=== PATIENT | male | born 1950 | race Hispanic/Latino ===

== ENCOUNTER 2017-01-06 13:24 | Emergency (ER) | payer OTHER ==
[2017-01-06 13:47] VITALS: BMI 19.6
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
[2017-01-06] MEDS ORDERED: Albuterol-Ipratrop 3 mg / 0.5 (3 ml) UD IH STA (13:49)
[2017-01-06 14:20] LABS: ADD MANUAL DIFF? NO
[2017-01-06 14:24] VITALS: RESP 18
[2017-01-06 14:25] LABS: BASO # 0.01 K/mm3 (0.0-2.0); BASO % 0.1 % (0.0-3.0); EOS # 0.6 (0.0-0.7); EOS % 5.7 % (1.5-5.0); GRAN # 7.89 (1.4-6.5); GRAN % 72.7 % (50.0-68.0); HEMATOCRIT 38.8 % (42.0-52.0); LYMPH # 1.4 (1.2-3.4); LYMPH % 13.3 % (22.0-35.0); MEAN CELL VOLUME 104.3 fL (80.0-105.0); MEAN CORPUSCULAR HEMOGLOBIN 33.9 pg (25.0-35.0); MEAN CORPUSCULAR HGB CONC 32.5 g/dl (31.0-37.0); MEAN PLATELET VOLUME 9.8 fl (7.0-11.0); MONO # 0.9 (0.1-0.6); MONO % 8.2 % (1.0-6.0); PLATELET COUNT 269 10^3/uL (120.0-450.0); WHITE BLOOD COUNT 10.9 10^3/ul (4.5-11.0)
--- NOTE | 2017-01-06 14:28 | RAD ---
HISTORY: sob COMPARISON: No prior. FINDINGS: LUNGS: There is pulmonary hyperinflation and peribronchial thickening with chronic changes in both lungs. There is no focal consolidation. PLEURA: No significant pleural effusion identified, no pneumothorax apparent. CARDIOVASCULAR: Normal. OSSEOUS STRUCTURES: No significant abnormalities. VISUALIZED UPPER ABDOMEN: Normal. OTHER FINDINGS: None. IMPRESSION: COPD. No active disease.
[2017-01-06 14:47] LABS: ALB/GLOB RATIO 0.9 (1.1-1.8); ALKALINE PHOSPHATASE 61 U/L (38-133); ALT/SGPT 20 U/L (7-56); AST/SGOT 20 U/L (15-59); BILIRUBIN,TOTAL 0.6 mg/dL (0.2-1.3); BLOOD UREA NITROGEN 6 mg/dL (7-21); CARBON DIOXIDE 37 mmol/L (21-33); CHLORIDE 93 mmol/L (98-107); GFR AFRICAN-AMERICAN > 60; GLUCOSE,RANDOM 184 mg/dL (70-110); POTASSIUM 4.3 mmol/L (3.6-5.0); SODIUM 136 mmol/L (132-148); TOTAL PROTEIN 6.4 g/dL (5.8-8.3)
[2017-01-06 14:59] LABS: TROPONIN I < 0.01 ng/mL
[2017-01-07 07:53] VITALS: BP 122/75; PULSE 91; TEMP 98; O2SAT 95
--- NOTE | 2017-01-07 09:56 | CARD ---
APPROVED REPORT EKG Measurement Heart [id number] <Conclusion> Sinus tachycardia LVH by voltage No change
== END 2017-01-07 07:55 | disposition home or self-care (01) ==
LOC: ED 13:24
DX: J44.1 Chronic obstructive pulmonary disease with (acute) exacerbation (principal); F41.9 Anxiety disorder, unspecified; I10 Essential (primary) hypertension
CPT/HCPCS: 71010; 80053; 82550; 83615; 84484; 85025; 93005; 96374; 99284; J2930

== ENCOUNTER 2017-01-07 08:10 | Emergency (ER) | payer OTHER ==
[2017-01-07 08:10] VITALS: BMI 19.6
[2017-01-07 08:20] VITALS: TEMP 97.4
[2017-01-07] MEDS ORDERED: Albuterol-Ipratrop 3 mg / 0.5 (3 ml) UD IH STA (08:20)
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
[2017-01-07 10:04] VITALS: RESP 18; O2SAT 96
[2017-01-07 11:11] VITALS: BP 137/83; PULSE 97
== END 2017-01-07 13:00 | disposition home or self-care (01) ==
LOC: ED 08:10
DX: J44.9 Chronic obstructive pulmonary disease, unspecified (principal); F41.9 Anxiety disorder, unspecified; I10 Essential (primary) hypertension

== ENCOUNTER 2017-02-17 18:51 | Inpatient (IN) | payer MEDICARE, OTHER ==
[2017-02-17 18:51] VITALS: BMI 19.6
[2017-02-17] MEDS ORDERED: Albuterol-Ipratrop 3 mg / 0.5 (3 ml) UD IH STA ×2 (19:18→22:35)
[2017-02-17] MEDS ORDERED: Albuterol-Ipratrop 3 mg / 0.5 (3 ml) UD ONE ×2 (19:23→22:24)
[2017-02-17 19:31] LABS: ADD MANUAL DIFF? NO
[2017-02-17 19:54] LABS: BASO # 0.03 K/mm3 (0.0-2.0); BASO % 0.2 % (0.0-3.0); EOS # 0.6 (0.0-0.7); EOS % 4.9 % (1.5-5.0); GRAN # 9.43 (1.4-6.5); GRAN % 77.4 % (50.0-68.0); HEMATOCRIT 33.3 % (42.0-52.0); LYMPH # 1.1 (1.2-3.4); LYMPH % 9.1 % (22.0-35.0); MEAN CELL VOLUME 97.1 fL (80.0-105.0); MEAN CORPUSCULAR HEMOGLOBIN 31.2 pg (25.0-35.0); MEAN CORPUSCULAR HGB CONC 32.1 g/dl (31.0-37.0); MEAN PLATELET VOLUME 9.3 fl (7.0-11.0); MONO % 8.4 % (1.0-6.0); PLATELET COUNT 264 10^3/uL (120.0-450.0); WHITE BLOOD COUNT 12.2 10^3/ul (4.5-11.0)
[2017-02-17 20:03] LABS: INR 0.94 (0.93-1.08); PARTIAL THROMBOPLASTIN TIME 27.1 Seconds (23.7-30.8)
[2017-02-17 20:19] LABS: ALB/GLOB RATIO 1.1 (1.1-1.8); ALKALINE PHOSPHATASE 71 U/L (38-133); ALT/SGPT 28 U/L (7-56); AST/SGOT 31 U/L (15-59); BILIRUBIN,TOTAL 0.5 mg/dL (0.2-1.3); BLOOD UREA NITROGEN 9 mg/dL (7-21); CALCIUM 9.4 mg/dL (8.4-10.5); CARBON DIOXIDE 37 mmol/L (21-33); CHLORIDE 87 mmol/L (98-107); GFR AFRICAN-AMERICAN > 60; GLUCOSE,RANDOM 109 mg/dL (70-110); POTASSIUM 3.8 mmol/L (3.6-5.0); SODIUM 131 mmol/L (132-148); TOTAL PROTEIN 6.7 g/dL (5.8-8.3)
[2017-02-17 20:29] LABS: TROPONIN I < 0.01 ng/mL
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
[2017-02-17] MEDS ORDERED: Sodium Chloride 0.9% 500 ML IV STA (21:22)
[2017-02-17] MEDS ORDERED: MethylPREDNISolone 40 mg Vial IVP PRN (22:24)
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
[2017-02-18 00:04] LABS: PHOSPHOROUS 3.7 mg/dL (2.5-4.5)
[2017-02-18 07:46] LABS: ADD MANUAL DIFF? NO
[2017-02-18] MEDS: Levalbuterol 0.63 MG/3 ML Inhal Soln UD IH SCH ×3 (07:46→20:35)
[2017-02-18 07:53] LABS: BASO # 0.01 K/mm3 (0.0-2.0); BASO % 0.2 % (0.0-3.0); GRAN # 3.98 (1.4-6.5); GRAN % 92.2 % (50.0-68.0); HEMATOCRIT 40.7 % (42.0-52.0); LYMPH # 0.3 (1.2-3.4); LYMPH % 6.7 % (22.0-35.0); MEAN CELL VOLUME 96.9 fL (80.0-105.0); MEAN CORPUSCULAR HGB CONC 31.9 g/dl (31.0-37.0); MEAN PLATELET VOLUME 9.5 fl (7.0-11.0); MONO % 0.9 % (1.0-6.0); PLATELET COUNT 308 10^3/uL (120.0-450.0); RED CELL DISTRIBUTION WIDTH 15.1 % (11.5-14.5); WHITE BLOOD COUNT 4.3 10^3/ul (4.5-11.0)
[2017-02-18 08:04] LABS: ALB/GLOB RATIO 1.1 (1.1-1.8); ALKALINE PHOSPHATASE 75 U/L (38-133); ALT/SGPT 24 U/L (7-56); AST/SGOT 29 U/L (15-59); BILIRUBIN,TOTAL 0.6 mg/dL (0.2-1.3); BLOOD UREA NITROGEN 9 mg/dL (7-21); CARBON DIOXIDE 34 mmol/L (21-33); CHLORIDE 95 mmol/L (98-107); GFR AFRICAN-AMERICAN > 60; GLUCOSE,RANDOM 148 mg/dL (70-110); POTASSIUM 4.3 mmol/L (3.6-5.0); SODIUM 142 mmol/L (132-148)
[2017-02-18 08:14] LABS: TROPONIN I 0.02 ng/mL
[2017-02-18] MEDS: Azithromycin 500MG/NS 250ml 500 MG/250 ML BAG IVPB SCH ×2 (09:19→23:54)
[2017-02-18] MEDS: ACLIDINIUM BROMIDE 400 MCG IH SCH ×2 (10:06→22:00)
[2017-02-18] MEDS: Enoxaparin 40 mg Syringe SC SCH (10:08)
[2017-02-18] MEDS: cefTRIAXone 1 gm 1 GM/100 ML BAG IVPB SCH (10:09)
[2017-02-18] MEDS: OLANZapine 5 mg Disintegrating Tab PO SCH ×2 (10:11→22:19)
[2017-02-18] MEDS: MethylPREDNISolone 40 mg Vial IVP SCH ×2 (10:11→22:17)
--- NOTE | 2017-02-18 11:38 | CP.PCM.PN ---
<Mdaeleine,Makenna - Last Filed: 02/18/17 11:35> Subjective - Date & Time of Evaluation Date of Evaluation: 02/18/17 Time of Evaluation: 11:36 - Subjective Subjective: HOSPITALIST PROGRESS NOTE Pt seen and examined at bedside. patient is agitated and confused, not oriented. Patient was placed on elisa overnight due to agitation. Objective - Vital Signs/Intake and Output Vital Signs (last 24 hours): Temp Pulse Resp BP Pulse Ox 98.3 F 108 H 20 151/87 H 93 L 02/18/17 05:49 02/18/17 07:48 02/18/17 05:49 02/18/17 05:49 02/18/17 00:08 Intake and Output: 02/18/17 02/18/17 06:59 18:59 Intake Total 120 Output Total 975 Balance -855 - Medications Medications: Current Medications Aspirin (Ecotrin) 81 mg PO DAILY [facility] Last Admin: 02/18/17 10:08 Dose: 81 mg Benztropine Mesylate (Cogentin) 0.5 mg PO BID [facility] Last Admin: 02/18/17 10:07 Dose: 0.5 mg Cyanocobalamin (Vitamin B12 1000 Mcg Tab) 1,000 mcg PO DAILY [facility] Last Admin: 02/18/17 10:11 Dose: 1,000 mcg Docusate Sodium (Colace) 100 mg PO DAILY [facility] Last Admin: 02/18/17 10:07 Dose: 100 mg Enoxaparin Sodium (Lovenox) 40 mg SC DAILY [facility] PRN Reason: Protocol Last Admin: 02/18/17 10:08 Dose: 40 mg Famotidine (Pepcid) 20 mg PO BID [facility] Last Admin: 02/18/17 10:09 Dose: 20 mg Guaifenesin/Dextromethorphan (Robitussin Dm) 5 ml PO Q4H PRN PRN Reason: Cough Ceftriaxone Sodium (Rocephin 1 Gram Ivpb) 1 gm in 100 mls @ 100 mls/hr IVPB DAILY [facility] PRN Reason: Protocol Last Admin: 02/18/17 10:09 Dose: 100 mls/hr Azithromycin (Zithromax 500mg In Ns) 500 mg in 250 mls @ 167 mls/hr IVPB Q24H [facility] Last Admin: 02/18/17 09:19 Dose: Not Given Levalbuterol HCl (Xopenex) 0.63 mg IH Q6H [facility] Last Admin: 02/18/17 07:46 Dose: 0.63 mg Lorazepam (Ativan) 0.5 mg PO TID PRN; Protocol PRN Reason: Anxiety Last Admin: 02/18/17 00:27 Dose: 0.5 mg Lorazepam (Ativan) 1 mg IVP Q2H PRN; Protocol PRN Reason: Agitation Last Admin: 02/18/17 10:06 Dose: 1 mg Methylprednisolone (Solu-Medrol) 20 mg IVP Q12 [facility] Last Admin: 02/18/17 10:11 Dose: 20 mg Metoprolol Tartrate (Lopressor) 25 mg PO BID [facility] Last Admin: 02/18/17 10:08 Dose: 25 mg Mirtazapine (Remeron) 15 mg PO HS PRN PRN Reason: Insomnia Last Admin: 02/18/17 00:28 Dose: 15 mg Nicotine (Nicoderm Cq) 1 patch TD DAILY [facility] Last Admin: 02/18/17 10:08 Dose: 1 patch Non-Formulary Medication (Aclidinium [place] [Tudorza Pressair]) 400 mcg IH Q12 [facility] Last Admin: 02/18/17 10:06 Dose: Not Given Olanzapine (Zyprexa Zydis) 5 mg PO AMHS [facility] PRN Reason: Protocol Last Admin: 02/18/17 10:11 Dose: 5 mg Valproate Sodium (Depakene) 500 mg PO AMHS [facility] Last Admin: 02/18/17 10:09 Dose: 500 mg - Labs Labs: 02/18/17 07:10 02/18/17 07:10 PT 10.1 Seconds (9.9-11.8) 02/17/17 19:18 INR 0.94 (0.93-1.08) 02/17/17 19:18 APTT 27.1 Seconds (23.7-30.8) 02/17/17 19:18 - Constitutional Appears: Agitated - Head Exam Head Exam: ATRAUMATIC - Respiratory Exam Respiratory Exam: absent: Accessory Muscle Use, Rales, Rhonchi, Wheezes, Respiratory Distress, NORMAL BREATHING PATTERN (shallow breaths ) - Cardiovascular Exam Cardiovascular Exam: REGULAR RHYTHM, +S1, +S2 - GI/Abdominal Exam GI & Abdominal Exam: Soft, Normal Bowel Sounds. absent: Distended, Firm, Guarding, Rigid, Tenderness - Extremities Exam Extremities Exam: absent: Pedal Edema, Tenderness - Neurological Exam Neurological Exam: Awake. absent: Alert, Oriented x3 - Skin Skin Exam: Dry, Intact, Normal Color, Warm Assessment and Plan - Assessment and Plan (Free Text) Assessment: 66M w/PMH sig for COPD, anxiety and multiple co-morbidites admitted for SOB due to panic attack vs. COPD exacerbation. Will be admitted and monitored on remote tele. Pt stable. Plan: COPD exacerbation leukocytosis resolved Afebrile Solumedrol 20mg Q12H [facility] wheezing xopenex Started Azithromycin 330mg Q24H Started Rocephin 1gm IVPB QD Robitussin DM Q4H PRN cough Cont home meds: Tudorza Pressair Target SaO2> 94% BiPAP prn Hyponatremia resolved Fluid restriction Monitor Hx CHF/CAD s/p cardiac cath HR 124 Given Duonebs x 2 in ED Troponin neg x 1 BNP 72.6 F/U 3rd trop Cont home meds: ASA 81mg QD, Lopressor 25mg PO BID Psych history Cont home meds: Cogentin 0.5mg PO BID, Cyanocobalamin 1,000mcg PO QD, Ativan 0.5mg PO TID PRN, Remeron 15mg PO HS PRN, Olanzapine 5mg PO AMHS, Psych consulted- Dr. Andersen Hx seizure d/o Cont home med: Valproic acid 500mg PO [facility] Tobacco abuse Nicotine patch TD QD Sacral skin break down Wound assessment/care as per nursing Monitor Multivitamin, zinc and vit c GI/DVT ppx SCDs Lovenox Pepcid Dispo Admit to remote tele Fall precautions HHD VS Q8H Cont home med: Colace 100mg PO QD, DW attending <Deon Avalos - Last Filed: 02/18/17 12:20> Objective - Vital Signs/Intake and Output Vital Signs (last 24 hours): Temp Pulse Resp BP Pulse Ox 98.3 F 108 H 20 151/87 H 93 L 02/18/17 05:49 02/18/17 07:48 02/18/17 05:49 02/18/17 05:49 02/18/17 00:08 Intake and Output: 02/18/17 02/18/17 06:59 18:59 Intake Total 120 Output Total 975 Balance -855 - Medications Medications: Current Medications Ascorbic Acid (Vitamin C 500 Mg Tab) 500 mg PO DAILY [facility] Aspirin (Ecotrin) 81 mg PO DAILY [facility] Last Admin: 02/18/17 10:08 Dose: 81 mg Benztropine Mesylate (Cogentin) 0.5 mg PO BID [facility] Last Admin: 02/18/17 10:07 Dose: 0.5 mg Cyanocobalamin (Vitamin B12 1000 Mcg Tab) 1,000 mcg PO DAILY [facility] Last Admin: 02/18/17 10:11 Dose: 1,000 mcg Docusate Sodium (Colace) 100 mg PO DAILY [facility] Last Admin: 02/18/17 10:07 Dose: 100 mg Enoxaparin Sodium (Lovenox) 40 mg SC DAILY [facility] PRN Reason: Protocol Last Admin: 02/18/17 10:08 Dose: 40 mg Famotidine (Pepcid) 20 mg PO BID [facility] Last Admin: 02/18/17 10:09 Dose: 20 mg Guaifenesin/Dextromethorphan (Robitussin Dm) 5 ml PO Q4H PRN PRN Reason: Cough Ceftriaxone Sodium (Rocephin 1 Gram Ivpb) 1 gm in 100 mls @ 100 mls/hr IVPB DAILY [facility] PRN Reason: Protocol Last Admin: 02/18/17 10:09 Dose: 100 mls/hr Azithromycin (Zithromax 500mg In Ns) 500 mg in 250 mls @ 167 mls/hr IVPB Q24H [facility] Last Admin: 02/18/17 09:19 Dose: Not Given Levalbuterol HCl (Xopenex) 0.63 mg IH Q6H [facility] Last Admin: 02/18/17 07:46 Dose: 0.63 mg Lorazepam (Ativan) 0.5 mg PO TID PRN; Protocol PRN Reason: Anxiety Last Admin: 02/18/17 00:27 Dose: 0.5 mg Lorazepam (Ativan) 1 mg IVP Q2H PRN; Protocol PRN Reason: Agitation Last Admin: 02/18/17 10:06 Dose: 1 mg Methylprednisolone (Solu-Medrol) 20 mg IVP Q12 [facility] Last Admin: 02/18/17 10:11 Dose: 20 mg Metoprolol Tartrate (Lopressor) 25 mg PO BID [facility] Last Admin: 02/18/17 10:08 Dose: 25 mg Mirtazapine (Remeron) 15 mg PO HS PRN PRN Reason: Insomnia Last Admin: 02/18/17 00:28 Dose: 15 mg Multivitamins/Minerals (Therapeutic-M Tab) 1 tab PO DAILY [facility] Nicotine (Nicoderm Cq) 1 patch TD DAILY [facility] Last Admin: 02/18/17 10:08 Dose: 1 patch Non-Formulary Medication (Aclidinium [place] [Tudorza Pressair]) 400 mcg IH Q12 [facility] Last Admin: 02/18/17 10:06 Dose: Not Given Olanzapine (Zyprexa Zydis) 5 mg PO AMHS [facility] PRN Reason: Protocol Last Admin: 02/18/17 10:11 Dose: 5 mg Valproate Sodium (Depakene) 500 mg PO AMHS [facility] Last Admin: 02/18/17 10:09 Dose: 500 mg Zinc Sulfate (Zinc Sulfate 220 Mg Cap) 220 mg PO DAILY [facility] - Labs Labs: 02/18/17 07:10 02/18/17 07:10 PT 10.1 Seconds (9.9-11.8) 02/17/17 19:18 INR 0.94 (0.93-1.08) 02/17/17 19:18 APTT 27.1 Seconds (23.7-30.8) 02/17/17 19:18 Attending/Attestation - Attestation I have personally seen and examined this patient.: Yes I have fully participated in the care of the patient.: Yes I have reviewed all pertinent clinical information, including history, physical exam and plan: Yes Notes (Text): 02/18/17 12:14 66 year old male with past medical history of COPD, anxiety, depression and PTSD who presented with shortness of breath secondary to panic attack +/- COPD exacerbation. Overnight he was confused and agitated requiring restraints. This morning as well he is agitated with mild confusion but can be re-oriented. He is on iv steroids, xopenex and antibiotics. He is on ativan prn. He was seen by psychiatrist earlier this morning. Will follow up with recommendations. Deon Avalos MD Hospitalist.
[2017-02-18] MEDS: Multivitamin With Minerals Tab PO SCH (12:31)
--- NOTE | 2017-02-18 13:01 | CON ---
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 Of note, patient did try to leave the Emergency Room but was not found to have [place] due to his confusion and paranoia. Psychiatry was called for a followup visit to patient's diso rientation as well as prior psychiatric history. I reviewed the patient's records and recent notes a nd met with patient at bedside. The patient is notably irritable, loud, angry and paranoid. However , patient is willing to superficially respond to questioning by this provider, although it does not a ppear I can establish a meaningful dialogue with him due to his mental status. The patient is not aw are of current circumstances of his admission, he believes that he on [address] in [place]. He is aware that it is January, however believes it is the beginning of January, and that it is 2016. The p atient is irritable as noted and indicates that he has pain "all over" and because of this he is depr essed. He denies any hallucinations. Denies feeling hopeless or suicidal. Denies any thoughts to h arm others. The patient has been difficult with staff members, restless and argumentative at times. He tells me that he liked the recent medications he has taken in the past; however, cannot recall an y of them except for Klonopin. He also wants his pain to be addressed. His insight and judgment are considered to be impaired. Impulse control is considered to be fair. PSYCHIATRIC HISTORY: As noted above the patient has a prior psychiatric history of multiple hospital izations, most recently 10/04 to 10/15/2016 at [facility]. The patient when he was disch arged in 09/2016, he was discharged on Depakote ER 1500 at bedtime, Ativan 0.5 t.i.d. as psychiatric medications. The patient does have a suicide attempt by overdose approximately 30 years ago. The jessa cisneros does not currently follow up with any psychiatric outpatient provider. MEDICATIONS: ____ also include ____ . ALLERGIES: THE PATIENT REPORTEDLY HAD A BAD REACTION TO ABILIFY IN THE PAST. SOCIAL HISTORY: The patient was born and raised in [place]. He is single and he has 3 children, 2 o f which are . The patient resides with his father. He denies any issues with drugs or al cohol; however, this contradicts prior records which indicate he has a history of alcohol abuse. LABORATORY DATA AND VITAL SIGNS: Both reviewed by this provider. RELEVANT PSYCHIATRIC MEDICATIONS: Include Cogentin 0.5 mg p.o. b.i.d., Ativan 0.5 mg p.o. t.i.d. p.r .n., as well as Ativan 1 mg IV push q. 2 hours p.r.n., Remeron 15 mg p.o. at bedtime p.r.n., Zyprexa Zydis 5 mg a.m. and at bedtime as well as depakene 500 mg p.o. a.m. and at bedtime scheduled. IMPRESSION: Bipolar mixed disorder moderate to severe by history, anxiety disorder by history, rule out alcohol abuse, rule out drug abuse, rule out substance-induced mood disorder and substance-induce d psychotic disorder and rule out the contribution of delirium to patient's presentation. PLAN: 1. Will continue with Ativan 0.5 mg p.o. t.i.d., however will continue at a standing dose as the pat ient reported improvement with benzodiazepines of the past. 2. We will also continue with depakene 500 mg p.o. a.m. and at bedtime, as patient requires mood sta bilizer due to his obvious mobility on the unit. 3. Will continue Zyprexa Zydis 5 mg a.m. and at bedtime as well due to the patient's disorganization . 4. Remeron should not be taken as p.r.n. medication for insomnia, it can help with insomnia, but it should also be taken daily to help with depression which patient currently reports having issues with at this time. We will continue this; however, change it to a standing dose. 5. I would also like to order a toxicology to determine if patient is under the influence of any jessica gs as well, although BAL was less than 10. 6. Lastly, psychiatry will continue to follow with patient and try to elicit cooperation for possibl e transfer to psychiatric unit for further stabilization if necessary once his mentation improved. W e will continue to follow up daily and to determinate feasibility of this transfer and tolerance to h is current medications and progression of his behavioral issues. Mari Stoll MD cc: [id number] TT: 02/18/2017 13:00:35 Confirmation # [id number] Dictation # [id number] jn
--- NOTE | 2017-02-18 13:36 | CARD ---
APPROVED REPORT EKG Measurement Heart [id number] <Conclusion> Sinus tachycardia Moderate voltage criteria for LVH, may be normal variant Borderline ECG
[2017-02-18] MEDS ORDERED: Levalbuterol 0.63 MG/3 ML Inhal Soln UD IH SCH (14:00)
--- NOTE | 2017-02-18 15:51 | RAD ---
HISTORY: cough COMPARISON: Comparison chest dated 12/15/2016. Comparison made with CT scan chest 12/15/2016. FINDINGS: LUNGS: Moderate emphysematous changes with upper lobe predominance associated with biapical pleural thickening and scarring less well seen compared to prior high-resolution CT scan. . PLEURA: No significant pleural effusion identified, no pneumothorax apparent. CARDIOVASCULAR: Normal. OSSEOUS STRUCTURES: No significant abnormalities. VISUALIZED UPPER ABDOMEN: Normal. OTHER FINDINGS: None. IMPRESSION: Emphysematous changes and biapical pleural scarring/parenchymal thickening.
[2017-02-18] MEDS: guaiFENesin DM 100 mg-10 mg/5 ml UD PO PRN (22:28)
[2017-02-19] MEDS: Levalbuterol 0.63 MG/3 ML Inhal Soln UD IH SCH ×4 (02:50→19:58)
[2017-02-19 05:26] LABS: URINE BILIRUBIN NEGATIVE (NEGATIVE); URINE BLOOD NEGATIVE (NEGATIVE); URINE GLUCOSE (UA) NEGATIVE (NEGATIVE); URINE KETONE NEGATIVE (NEGATIVE); URINE LEUKOCYTE ESTERASE NEGATIVE Leu/uL (NEGATIVE); URINE PROTEIN NEGATIVE mg/dL (<30 mg/dL); URINE UROBILINOGEN 0.2 E.U./dL (<1 E.U./dL)
[2017-02-19 05:40] LABS: URINE APPEARANCE CLEAR (CLEAR); URINE COLOR YELLOW (YELLOW)
[2017-02-19 07:43] LABS: ADD MANUAL DIFF? NO
[2017-02-19 07:51] LABS: GRAN % 82.5 % (50.0-68.0); HEMATOCRIT 35.4 % (42.0-52.0); LYMPH # 0.6 (1.2-3.4); LYMPH % 10.2 % (22.0-35.0); MEAN CELL VOLUME 97.8 fL (80.0-105.0); MEAN CORPUSCULAR HEMOGLOBIN 30.7 pg (25.0-35.0); MEAN CORPUSCULAR HGB CONC 31.4 g/dl (31.0-37.0); MEAN PLATELET VOLUME 9.3 fl (7.0-11.0); MONO # 0.5 (0.1-0.6); MONO % 7.3 % (1.0-6.0); PLATELET COUNT 275 10^3/uL (120.0-450.0); RED CELL DISTRIBUTION WIDTH 15.2 % (11.5-14.5); WHITE BLOOD COUNT 6.3 10^3/ul (4.5-11.0)
[2017-02-19 08:05] LABS: ALB/GLOB RATIO 1.1 (1.1-1.8); ALKALINE PHOSPHATASE 58 U/L (38-133); ALT/SGPT 30 U/L (7-56); AST/SGOT 14 U/L (15-59); BILIRUBIN,TOTAL 0.2 mg/dL (0.2-1.3); BLOOD UREA NITROGEN 10 mg/dL (7-21); CALCIUM 9.3 mg/dL (8.4-10.5); CARBON DIOXIDE 36 mmol/L (21-33); CHLORIDE 98 mmol/L (95-110); GFR AFRICAN-AMERICAN > 60; GLUCOSE,RANDOM 129 mg/dL (70-110); POTASSIUM 4.2 mmol/L (3.6-5.0); SODIUM 140 mmol/L (132-148); TOTAL PROTEIN 6.3 g/dL (5.8-8.3)
[2017-02-19] MEDS: ACLIDINIUM BROMIDE 400 MCG IH SCH ×2 (09:07→22:17)
[2017-02-19] MEDS: cefTRIAXone 1 gm 1 GM/100 ML BAG IVPB SCH (09:36)
[2017-02-19] MEDS: Enoxaparin 40 mg Syringe SC SCH (09:36)
[2017-02-19] MEDS: MethylPREDNISolone 40 mg Vial IVP SCH (09:37)
[2017-02-19] MEDS: Multivitamin With Minerals Tab PO SCH (09:38)
[2017-02-19] MEDS: OLANZapine 5 mg Disintegrating Tab PO SCH ×2 (09:38→22:19)
--- NOTE | 2017-02-19 14:03 | CP.PCM.PN ---
<Taqueria Floyd - Last Filed: 02/19/17 14:00> Subjective - Date & Time of Evaluation Date of Evaluation: 02/19/17 Time of Evaluation: 08:30 - Subjective Subjective: Dr. Floyd PGY 1 Hospitalist Note Patient seen and evaluated at bedside with attending. He complains of headache and feeling anxious. He denies any chest pain, SOb, nausea, vomiting, abdominal pain, fever, or chills. Per nursing, patient became agitated and combative. When re-evaluated he was anxious, irascible, and mildly confused. He was redirected and states he wants to be seen by psychiatry and sign in to get help. Objective - Vital Signs/Intake and Output Vital Signs (last 24 hours): Temp Pulse Resp BP Pulse Ox 97.7 F 93 H 20 117/78 98 02/19/17 12:00 02/19/17 12:00 02/19/17 12:00 02/19/17 12:00 02/19/17 05:30 Intake and Output: 02/19/17 02/19/17 06:59 18:59 Output Total 500 Balance -500 - Medications Medications: Current Medications Ascorbic Acid (Vitamin C 500 Mg Tab) 500 mg PO DAILY [facility] Last Admin: 02/19/17 09:38 Dose: 500 mg Aspirin (Ecotrin) 81 mg PO DAILY [facility] Last Admin: 02/19/17 09:35 Dose: 81 mg Benztropine Mesylate (Cogentin) 0.5 mg PO BID [facility] Last Admin: 02/19/17 09:35 Dose: 0.5 mg Cyanocobalamin (Vitamin B12 1000 Mcg Tab) 1,000 mcg PO DAILY [facility] Last Admin: 02/19/17 09:38 Dose: 1,000 mcg Docusate Sodium (Colace) 100 mg PO DAILY [facility] Last Admin: 02/19/17 09:35 Dose: 100 mg Enoxaparin Sodium (Lovenox) 40 mg SC DAILY [facility] PRN Reason: Protocol Last Admin: 02/19/17 09:36 Dose: 40 mg Famotidine (Pepcid) 20 mg PO BID [facility] Last Admin: 02/19/17 09:36 Dose: 20 mg Guaifenesin/Dextromethorphan (Robitussin Dm) 5 ml PO Q4H PRN PRN Reason: Cough Last Admin: 02/18/17 22:28 Dose: 5 ml Ceftriaxone Sodium (Rocephin 1 Gram Ivpb) 1 gm in 100 mls @ 100 mls/hr IVPB DAILY [facility] PRN Reason: Protocol Last Admin: 02/19/17 09:36 Dose: 100 mls/hr Azithromycin (Zithromax 500mg In Ns) 500 mg in 250 mls @ 167 mls/hr IVPB Q24H [facility] Last Admin: 02/18/17 23:54 Dose: 167 mls/hr Levalbuterol HCl (Xopenex) 0.63 mg IH Q6H [facility] Last Admin: 02/19/17 13:42 Dose: 0.63 mg Lorazepam (Ativan) 0.5 mg PO TID [facility] PRN Reason: Protocol Last Admin: 02/19/17 13:38 Dose: 0.5 mg Lorazepam (Ativan) 1 mg IVP Q4 PRN; Protocol PRN Reason: Agitation Last Admin: 02/19/17 10:54 Dose: 1 mg Metoprolol Tartrate (Lopressor) 25 mg PO BID [facility] Last Admin: 02/19/17 09:36 Dose: 25 mg Mirtazapine (Remeron) 15 mg PO HS [facility] Last Admin: 02/18/17 22:19 Dose: 15 mg Multivitamins/Minerals (Therapeutic-M Tab) 1 tab PO DAILY [facility] Last Admin: 02/19/17 09:38 Dose: 1 tab Nicotine (Nicoderm Cq) 1 patch TD DAILY [facility] Last Admin: 02/19/17 09:36 Dose: 1 patch Non-Formulary Medication (Aclidinium [place] [Tudorza Pressair]) 400 mcg IH Q12 [facility] Last Admin: 02/19/17 09:07 Dose: Not Given Olanzapine (Zyprexa Zydis) 5 mg PO AMHS [facility] PRN Reason: Protocol Last Admin: 02/19/17 09:38 Dose: 5 mg Prednisone (Prednisone Tab) 20 mg PO DAILY [facility] Valproate Sodium (Depakene) 500 mg PO AMHS [facility] Last Admin: 02/19/17 09:35 Dose: 500 mg Zinc Sulfate (Zinc Sulfate 220 Mg Cap) 220 mg PO DAILY [facility] Last Admin: 02/19/17 09:38 Dose: 220 mg - Labs Labs: 02/19/17 07:40 02/19/17 07:40 PT 10.1 Seconds (9.9-11.8) 02/17/17 19:18 INR 0.94 (0.93-1.08) 02/17/17 19:18 APTT 27.1 Seconds (23.7-30.8) 02/17/17 19:18 - Constitutional Appears: Older Than Stated Age, Agitated - Head Exam Head Exam: ATRAUMATIC, NORMOCEPHALIC - Eye Exam Eye Exam: EOMI, Normal appearance, PERRL Pupil Exam: NORMAL ACCOMODATION, PERRL - ENT Exam ENT Exam: Mucous Membranes Moist - Respiratory Exam Respiratory Exam: Clear to Ausculation Bilateral, NORMAL BREATHING PATTERN. absent: Rales, Rhonchi, Wheezes - Cardiovascular Exam Cardiovascular Exam: REGULAR RHYTHM, +S1, +S2 - GI/Abdominal Exam GI & Abdominal Exam: Soft, Normal Bowel Sounds. absent: Tenderness - Extremities Exam Extremities Exam: Full ROM, Normal Capillary Refill. absent: Pedal Edema, Tenderness - Neurological Exam Neurological Exam: Alert, Awake, CN II-XII Intact, Oriented x3 - Psychiatric Exam Psychiatric exam: Agitated, Anxious - Skin Skin Exam: Dry, Intact, Normal Color, Warm Assessment and Plan - Assessment and Plan (Free Text) Assessment: 66M w/PMH sig for COPD, anxiety and multiple co-morbidites admitted for SOB due to panic attack vs. COPD exacerbation. He was evaluated by psychiatry and may be candidate for psychiatry floor.. Plan: COPD exacerbation * afebrile without leukocytosis * Solumedrol 20mg daily for wheezing * xopenex * Continue Azithromycin and Rocephin * Robitussin DM Q4H PRN cough * Cont home meds: Tudorza Pressair * Target SaO2> 94% * BiPAP prn Psych history * Psychiatry consulted, help appreciated * Sitter and elisa as needed due to AMS * Cont home meds: Cogentin 0.5mg PO BID, Cyanocobalamin 1,000mcg PO QD, Ativan 0.5mg PO TID PRN, Remeron 15mg PO HS PRN, Olanzapine 5mg PO AMHS, * Possible transfer to psych floor Hx CHF/CAD s/p cardiac cath * BP and HR wnl * Troponin neg x 3 * BNP 72.6 * Cont home meds: ASA 81mg QD, Lopressor 25mg PO BID Electrolyte Imbalance * resolved * Fluid restriction * Monitor and replenish as needed Hx seizure d/o * Cont home med: Valproic acid 500mg PO AMHS Tobacco abuse * Nicotine patch TD QD Sacral skin break down * Wound assessment/care as per nursing * Multivitamin, zinc and vit c * Monitor GI/DVT ppx * SCDs * Lovenox * Pepcid Dispo * Transfer to med/surg floor * Fall precautions * HHD * VS Q8H * Cont home med: Colace 100mg PO QD, Discussed with attending <Deon Avalos - Last Filed: 02/19/17 14:26> Objective - Vital Signs/Intake and Output Vital Signs (last 24 hours): Temp Pulse Resp BP Pulse Ox 97.7 F 93 H 20 117/78 98 02/19/17 12:00 02/19/17 12:00 02/19/17 12:00 02/19/17 12:00 02/19/17 05:30 Intake and Output: 02/19/17 02/19/17 06:59 18:59 Output Total 500 Balance -500 - Medications Medications: Current Medications Ascorbic Acid (Vitamin C 500 Mg Tab) 500 mg PO DAILY [facility] Last Admin: 02/19/17 09:38 Dose: 500 mg Aspirin (Ecotrin) 81 mg PO DAILY [facility] Last Admin: 02/19/17 09:35 Dose: 81 mg Benztropine Mesylate (Cogentin) 0.5 mg PO BID [facility] Last Admin: 02/19/17 09:35 Dose: 0.5 mg Cyanocobalamin (Vitamin B12 1000 Mcg Tab) 1,000 mcg PO DAILY [facility] Last Admin: 02/19/17 09:38 Dose: 1,000 mcg Docusate Sodium (Colace) 100 mg PO DAILY [facility] Last Admin: 02/19/17 09:35 Dose: 100 mg Enoxaparin Sodium (Lovenox) 40 mg SC DAILY [facility] PRN Reason: Protocol Last Admin: 02/19/17 09:36 Dose: 40 mg Famotidine (Pepcid) 20 mg PO BID [facility] Last Admin: 02/19/17 09:36 Dose: 20 mg Guaifenesin/Dextromethorphan (Robitussin Dm) 5 ml PO Q4H PRN PRN Reason: Cough Last Admin: 02/18/17 22:28 Dose: 5 ml Ceftriaxone Sodium (Rocephin 1 Gram Ivpb) 1 gm in 100 mls @ 100 mls/hr IVPB DAILY [facility] PRN Reason: Protocol Last Admin: 02/19/17 09:36 Dose: 100 mls/hr Azithromycin (Zithromax 500mg In Ns) 500 mg in 250 mls @ 167 mls/hr IVPB Q24H [facility] Last Admin: 02/18/17 23:54 Dose: 167 mls/hr Levalbuterol HCl (Xopenex) 0.63 mg IH Q6H [facility] Last Admin: 02/19/17 13:42 Dose: 0.63 mg Lorazepam (Ativan) 0.5 mg PO TID [facility] PRN Reason: Protocol Last Admin: 02/19/17 13:38 Dose: 0.5 mg Lorazepam (Ativan) 1 mg IVP Q4 PRN; Protocol PRN Reason: Agitation Last Admin: 02/19/17 10:54 Dose: 1 mg Metoprolol Tartrate (Lopressor) 25 mg PO BID [facility] Last Admin: 02/19/17 09:36 Dose: 25 mg Mirtazapine (Remeron) 15 mg PO HS [facility] Last Admin: 02/18/17 22:19 Dose: 15 mg Multivitamins/Minerals (Therapeutic-M Tab) 1 tab PO DAILY [facility] Last Admin: 02/19/17 09:38 Dose: 1 tab Nicotine (Nicoderm Cq) 1 patch TD DAILY [facility] Last Admin: 02/19/17 09:36 Dose: 1 patch Non-Formulary Medication (Aclidinium [place] [Tudorza Pressair]) 400 mcg IH Q12 [facility] Last Admin: 02/19/17 09:07 Dose: Not Given Olanzapine (Zyprexa Zydis) 5 mg PO AMHS [facility] PRN Reason: Protocol Last Admin: 02/19/17 09:38 Dose: 5 mg Prednisone (Prednisone Tab) 20 mg PO DAILY [facility] Valproate Sodium (Depakene) 500 mg PO [facility]HS [facility] Last Admin: 02/19/17 09:35 Dose: 500 mg Zinc Sulfate (Zinc Sulfate 220 Mg Cap) 220 mg PO DAILY [facility] Last Admin: 02/19/17 09:38 Dose: 220 mg - Labs Labs: 02/19/17 07:40 02/19/17 07:40 PT 10.1 Seconds (9.9-11.8) 02/17/17 19:18 INR 0.94 (0.93-1.08) 02/17/17 19:18 APTT 27.1 Seconds (23.7-30.8) 02/17/17 19:18 Attending/Attestation - Attestation I have personally seen and examined this patient.: Yes I have fully participated in the care of the patient.: Yes I have reviewed all pertinent clinical information, including history, physical exam and plan: Yes Notes (Text): 02/19/17 14:23 66 year old male with past medical history of COPD, anxiety, depression and PTSD who presented with shortness of breath secondary to panic attack +/- COPD exacerbation. This has improved and we will begin to taper his steroids. Hospital course was complicated with episodes of delirium. He was mildly confused earlier this morning but overall doing better. He is being followed by psychiatry. Plan is for possible transfer to inpatient psychiatry unit tomorrow. Will continue with current management. Can downgrade from telemetry unit. Deon Avalos MD Hospitalist.
[2017-02-20] MEDS: Azithromycin 500MG/NS 250ml 500 MG/250 ML BAG IVPB SCH (00:21)
[2017-02-20] MEDS: Levalbuterol 0.63 MG/3 ML Inhal Soln UD IH SCH ×4 (03:00→19:55)
[2017-02-20] MEDS ORDERED: Albuterol 0.083% Inhal Sol (2.5 mg/3 mL) UD IH PRN (07:13)
[2017-02-20 07:22] LABS: ADD MANUAL DIFF? NO
[2017-02-20 07:26] LABS: BASO # 0.02 K/mm3 (0.0-2.0); BASO % 0.2 % (0.0-3.0); EOS # 0.2 (0.0-0.7); GRAN % 54.1 % (50.0-68.0); HEMATOCRIT 43.1 % (42.0-52.0); LYMPH # 2.6 (1.2-3.4); MEAN CELL VOLUME 99.3 fL (80.0-105.0); MEAN CORPUSCULAR HEMOGLOBIN 30.9 pg (25.0-35.0); MEAN CORPUSCULAR HGB CONC 31.1 g/dl (31.0-37.0); MEAN PLATELET VOLUME 9.1 fl (7.0-11.0); MONO % 11.7 % (1.0-6.0); PLATELET COUNT 286 10^3/uL (120.0-450.0); RED CELL DISTRIBUTION WIDTH 15.4 % (11.5-14.5); WHITE BLOOD COUNT 8.1 10^3/ul (4.5-11.0)
--- NOTE | 2017-02-20 08:50 | CON ---
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 The patient was noted to have altered mental status, specifically confusion an d paranoia, and tried to leave the Emergency Room and was stopped from leaving the Emergency Room due to lack of capacity. Psychiatry was called to follow up to evaluate the patient, and the patient wa s seen by this provider yesterday and today. I reviewed his records and recent notes with him at bed side today. The patient is still irritable; however, he is less loud and labile. He superficially r esponds to questioning by this provider and it still does not appear I can establish a meaningful aminta gerry with him due to his disorientation. He appears to be calmer today, but a little bit more disor iented in that he does not know where he is and he does not recall our conversation yesterday, though he is able to provide me the month and year. He has been unpredictable on the unit and has required restraints and 1:1. Presently, he denies having any discomfort unlike yesterday where he said he raygoza d "pain all over." However, this provider has some doubts about reliability as a historian due to hi s thought process of specifically whether he truly comprehends all the questions presented to him. Mariela josé does deny having any hallucinations and does not appear to be hallucinating. He denies feeling hop eless or suicidal or homicidal and as mentioned, he has been difficult with staff members, restless a nd argumentative. He is tolerating current medications that I reviewed with him including specifical ly his psychotropic medications and would like to continue with them. His insight and judgment are c onsidered to still be impaired and impulse control is considered to be tenuously fair at this time. VITAL SIGNS AND LABORATORY WORK: Were reviewed today by this provider. Of note, urine U-tox is posi tive for benzos. RELEVANT PSYCHIATRIC MEDICATIONS: Include Ativan 1 mg IV q.4 p.r.n. as well as Ativan 0.5 mg p.o. t. i.d. scheduled, Remeron 15 mg p.o. scheduled, Zyprexa Zydis 5 mg a.m. and at bedtime, and depakene 50 0 mg a.m. and at bedtime. IMPRESSION: Hyperactive delirium, improving since yesterday. Bipolar mixed disorder, [id number] hilary by history, anxiety disorder by history, rule out alcohol abuse, rule out drug abuse, rule out s ubstance-induced mood disorder and substance induced psychotic disorder. PLAN: 1. Will continue with Ativan 0.5 mg p.o. t.i.d. as well as depakene 500 mg a.m. and at bedtime, Zypr exa Zydis 5 mg a.m. and at bedtime and Remeron 15 mg at bedtime. 2. Psychiatry will continue to follow up with the patient to try and to elicit his cooperation for p ossible transfer to the psychiatric unit for further stabilization once he is medically cleared. At this time, the patient still appears to be confused, but regardless, he is adamantly refusing psychia tric transfer. Due to his confusion, the patient does not have the capacity to sign out AMA at this time, although this might improve by tomorrow. Psychiatry will continue to assess his mental status to help determine the most appropriate disposition for him. Mari Stoll MD cc: [id number] TT: 02/19/2017 18:30:44 Confirmation # [id number] Dictation # [id number]
[2017-02-20] MEDS: OLANZapine 5 mg Disintegrating Tab PO SCH ×2 (09:52→21:41)
[2017-02-20] MEDS: Multivitamin With Minerals Tab PO SCH (09:54)
[2017-02-20] MEDS: Enoxaparin 40 mg Syringe SC SCH (09:54)
[2017-02-20] MEDS: cefTRIAXone 1 gm 1 GM/100 ML BAG IVPB SCH (09:55)
[2017-02-20] MEDS ORDERED: MethylPREDNISolone 40 mg Vial IVP SCH (10:00)
[2017-02-20 10:11] LABS: ALKALINE PHOSPHATASE 53 U/L (38-133); ALT/SGPT 27 U/L (7-56); AST/SGOT 23 U/L (15-59); BILIRUBIN,TOTAL 0.4 mg/dL (0.2-1.3); BLOOD UREA NITROGEN 12 mg/dL (7-21); CALCIUM 9.5 mg/dL (8.4-10.5); CHLORIDE 95 mmol/L (98-107); GFR AFRICAN-AMERICAN > 60; GLUCOSE,RANDOM 143 mg/dL (70-110); POTASSIUM 3.6 mmol/L (3.6-5.0); SODIUM 142 mmol/L (132-148); TOTAL PROTEIN 6.5 g/dL (5.8-8.3)
[2017-02-20 10:32] LABS: CARBON DIOXIDE 43 mmol/L (21-33)
[2017-02-20] MEDS: ACLIDINIUM BROMIDE 400 MCG IH SCH ×2 (11:36→21:41)
--- NOTE | 2017-02-20 13:27 | CP.PCM.PN ---
<Taqueria Floyd - Last Filed: 02/20/17 13:20> Subjective - Date & Time of Evaluation Date of Evaluation: 02/20/17 Time of Evaluation: 07:45 - Subjective Subjective: Dr. Floyd PGY 1 Hospitalist Note Patient seen and evaluated at bedside. He is alert and orient. He states he had a better night and was able to get some sleep. He says his breathing is improved and he is less anxious. He asks me when he can go to the psychiatry floor; however, he later says he only wants to be up there a few days. Patient was agitated requiring elisa vest. He denies any fever, chills, nausea, vomiting , or cough. Objective - Vital Signs/Intake and Output Vital Signs (last 24 hours): Temp Pulse Resp BP Pulse Ox 97.7 F 81 20 123/73 95 02/20/17 11:51 02/20/17 11:51 02/20/17 11:51 02/20/17 11:51 02/19/17 15:33 - Medications Medications: Current Medications Albuterol Sulfate (Albuterol 0.083% Inhal Hanane (2.5 Mg/3 Ml) Ud) 2.5 mg IH [id number] PRN PRN Reason: Shortness of Breath Ascorbic Acid (Vitamin C 500 Mg Tab) 500 mg PO DAILY [facility] Last Admin: 02/20/17 09:52 Dose: 500 mg Aspirin (Ecotrin) 81 mg PO DAILY [facility] Last Admin: 02/20/17 09:53 Dose: 81 mg Benztropine Mesylate (Cogentin) 0.5 mg PO BID [facility] Last Admin: 02/20/17 09:54 Dose: 0.5 mg Cyanocobalamin (Vitamin B12 1000 Mcg Tab) 1,000 mcg PO DAILY [facility] Last Admin: 02/20/17 09:51 Dose: 1,000 mcg Docusate Sodium (Colace) 100 mg PO DAILY [facility] Last Admin: 02/20/17 09:52 Dose: 100 mg Enoxaparin Sodium (Lovenox) 40 mg SC DAILY [facility] PRN Reason: Protocol Last Admin: 02/20/17 09:54 Dose: 40 mg Famotidine (Pepcid) 20 mg PO BID [facility] Last Admin: 02/20/17 09:54 Dose: 20 mg Guaifenesin/Dextromethorphan (Robitussin Dm) 5 ml PO Q4H PRN PRN Reason: Cough Last Admin: 02/18/17 22:28 Dose: 5 ml Ceftriaxone Sodium (Rocephin 1 Gram Ivpb) 1 gm in 100 mls @ 100 mls/hr IVPB DAILY [facility] PRN Reason: Protocol Last Admin: 02/20/17 09:55 Dose: 100 mls/hr Azithromycin (Zithromax 500mg In Ns) 500 mg in 250 mls @ 167 mls/hr IVPB Q24H [facility] Last Admin: 02/20/17 00:21 Dose: 167 mls/hr Levalbuterol HCl (Xopenex) 0.63 mg IH Q6H [facility] Last Admin: 02/20/17 07:57 Dose: 0.63 mg Lorazepam (Ativan) 0.5 mg PO TID [facility] PRN Reason: Protocol Last Admin: 02/20/17 09:52 Dose: 0.5 mg Lorazepam (Ativan) 1 mg IVP Q4 PRN; Protocol PRN Reason: Agitation Last Admin: 02/19/17 22:18 Dose: 1 mg Metoprolol Tartrate (Lopressor) 25 mg PO BID [facility] Last Admin: 02/20/17 09:53 Dose: 25 mg Mirtazapine (Remeron) 15 mg PO HS [facility] Last Admin: 02/19/17 22:18 Dose: 15 mg Multivitamins/Minerals (Therapeutic-M Tab) 1 tab PO DAILY [facility] Last Admin: 02/20/17 09:54 Dose: 1 tab Nicotine (Nicoderm Cq) 1 patch TD DAILY [facility] Last Admin: 02/20/17 09:54 Dose: 1 patch Non-Formulary Medication (Aclidinium Hubertus [Tudorza Pressair]) 400 mcg IH Q12 [facility] Last Admin: 02/20/17 11:36 Dose: Not Given Olanzapine (Zyprexa Zydis) 5 mg PO AMHS [facility] PRN Reason: Protocol Last Admin: 02/20/17 09:52 Dose: 5 mg Prednisone (Prednisone Tab) 20 mg PO DAILY [facility] Last Admin: 02/20/17 09:54 Dose: 20 mg Valproate Sodium (Depakene) 500 mg PO AMHS [facility] Last Admin: 02/20/17 09:51 Dose: 500 mg Zinc Sulfate (Zinc Sulfate 220 Mg Cap) 220 mg PO DAILY [facility] Last Admin: 02/20/17 09:52 Dose: 220 mg - Labs Labs: 02/20/17 07:00 02/20/17 09:45 PT 10.1 Seconds (9.9-11.8) 02/17/17 19:18 INR 0.94 (0.93-1.08) 02/17/17 19:18 APTT 27.1 Seconds (23.7-30.8) 02/17/17 19:18 - Constitutional Appears: Older Than Stated Age, Agitated - Head Exam Head Exam: ATRAUMATIC, NORMOCEPHALIC - Eye Exam Eye Exam: EOMI, Normal appearance, PERRL Pupil Exam: NORMAL ACCOMODATION, PERRL - ENT Exam ENT Exam: Mucous Membranes Moist, Normal Oropharynx - Neck Exam Neck Exam: Normal Inspection - Respiratory Exam Respiratory Exam: Decreased Breath Sounds (bilateral lowerlobes ), NORMAL BREATHING PATTERN. absent: Rales, Rhonchi, Wheezes - Cardiovascular Exam Cardiovascular Exam: REGULAR RHYTHM, +S1, +S2, Murmur (+2 systolic). absent: Gallop, Rubs - GI/Abdominal Exam GI & Abdominal Exam: Soft, Normal Bowel Sounds. absent: Tenderness - Extremities Exam Extremities Exam: Normal Capillary Refill, Tenderness. absent: Normal Inspection (erythema and echymosis bilateral upper extremities), Pedal Edema - Neurological Exam Neurological Exam: Alert, Awake, CN II-XII Intact, Oriented x3 - Psychiatric Exam Psychiatric exam: Agitated - Skin Skin Exam: Dry, Intact, Rash, Warm. absent: Urticaria Assessment and Plan - Assessment and Plan (Free Text) Assessment: 66M w/PMH sig for COPD, anxiety and multiple co-morbidites admitted for SOB due to panic attack vs. COPD exacerbation. He is pending transfer to psychiatry. Plan: COPD exacerbation * afebrile without leukocytosis * Continue Azithromycin and Rocephin * Cont home meds: Tudorza Pressair, xopenex * Robitussin DM Q4H PRN cough * Prednisone 20mg daily * Target SaO2> 94% * BiPAP prn Psych history * Psychiatry consulted, help appreciated * Sitter and elisa as needed due to AMS * Cont home meds: Cogentin 0.5mg PO BID, Cyanocobalamin 1,000mcg PO QD, Ativan 0.5mg PO TID PRN, Remeron 15mg PO HS PRN, Olanzapine 5mg PO AMHS, * Possible transfer to psych floor Hx CHF/CAD s/p cardiac cath * BP and HR wnl * Troponin neg x 3 * BNP 72.6 * Cont home meds: ASA 81mg QD, Lopressor 25mg PO BID Electrolyte Imbalance * resolved * Fluid restriction * Monitor and replenish as needed Hx seizure d/o * Cont home med: Valproic acid 500mg PO [facility] Tobacco abuse * Nicotine patch TD QD Sacral skin break down * Wound assessment/care as per nursing * Multivitamin, zinc and vit c * Monitor GI/DVT ppx * SCDs * Lovenox * Pepcid Dispo * Transfer to med/surg floor * Physical therapy * Fall precautions * HHD * VS Q8H * Cont home med: Colace 100mg PO QD, Discussed with attending <Gissel WORTHINGTON,Marco Antonio - Last Filed: 02/20/17 14:32> Objective - Vital Signs/Intake and Output Vital Signs (last 24 hours): Temp Pulse Resp BP Pulse Ox 97.7 F 81 20 123/73 95 02/20/17 11:51 02/20/17 11:51 02/20/17 11:51 02/20/17 11:51 02/19/17 15:33 - Medications Medications: Current Medications Albuterol Sulfate (Albuterol 0.083% Inhal Hanane (2.5 Mg/3 Ml) Ud) 2.5 mg IH [id number] PRN PRN Reason: Shortness of Breath Ascorbic Acid (Vitamin C 500 Mg Tab) 500 mg PO DAILY [facility] Last Admin: 02/20/17 09:52 Dose: 500 mg Aspirin (Ecotrin) 81 mg PO DAILY [facility] Last Admin: 02/20/17 09:53 Dose: 81 mg Benztropine Mesylate (Cogentin) 0.5 mg PO BID [facility] Last Admin: 02/20/17 09:54 Dose: 0.5 mg Cyanocobalamin (Vitamin B12 1000 Mcg Tab) 1,000 mcg PO DAILY [facility] Last Admin: 02/20/17 09:51 Dose: 1,000 mcg Docusate Sodium (Colace) 100 mg PO DAILY [facility] Last Admin: 02/20/17 09:52 Dose: 100 mg Enoxaparin Sodium (Lovenox) 40 mg SC DAILY [facility] PRN Reason: Protocol Last Admin: 02/20/17 09:54 Dose: 40 mg Famotidine (Pepcid) 20 mg PO BID [facility] Last Admin: 02/20/17 09:54 Dose: 20 mg Guaifenesin/Dextromethorphan (Robitussin Dm) 5 ml PO Q4H PRN PRN Reason: Cough Last Admin: 02/18/17 22:28 Dose: 5 ml Ceftriaxone Sodium (Rocephin 1 Gram Ivpb) 1 gm in 100 mls @ 100 mls/hr IVPB DAILY [facility] PRN Reason: Protocol Last Admin: 02/20/17 09:55 Dose: 100 mls/hr Azithromycin (Zithromax 500mg In Ns) 500 mg in 250 mls @ 167 mls/hr IVPB Q24H [facility] Last Admin: 02/20/17 00:21 Dose: 167 mls/hr Levalbuterol HCl (Xopenex) 0.63 mg IH Q6H [facility] Last Admin: 02/20/17 13:50 Dose: 0.63 mg Lorazepam (Ativan) 0.5 mg PO TID [facility] PRN Reason: Protocol Last Admin: 02/20/17 14:16 Dose: 0.5 mg Lorazepam (Ativan) 1 mg IVP Q4 PRN; Protocol PRN Reason: Agitation Last Admin: 02/19/17 22:18 Dose: 1 mg Metoprolol Tartrate (Lopressor) 25 mg PO BID [facility] Last Admin: 02/20/17 09:53 Dose: 25 mg Mirtazapine (Remeron) 15 mg PO HS [facility] Last Admin: 02/19/17 22:18 Dose: 15 mg Multivitamins/Minerals (Therapeutic-M Tab) 1 tab PO DAILY [facility] Last Admin: 02/20/17 09:54 Dose: 1 tab Nicotine (Nicoderm Cq) 1 patch TD DAILY [facility] Last Admin: 02/20/17 09:54 Dose: 1 patch Non-Formulary Medication (Aclidinium Hubertus [Tudorza Pressair]) 400 mcg IH Q12 [facility] Last Admin: 02/20/17 11:36 Dose: Not Given Olanzapine (Zyprexa Zydis) 5 mg PO [facility] PRN Reason: Protocol Last Admin: 02/20/17 09:52 Dose: 5 mg Prednisone (Prednisone Tab) 20 mg PO DAILY [facility] Last Admin: 02/20/17 09:54 Dose: 20 mg Valproate Sodium (Depakene) 500 mg PO [facility] Last Admin: 02/20/17 09:51 Dose: 500 mg Zinc Sulfate (Zinc Sulfate 220 Mg Cap) 220 mg PO DAILY [facility] Last Admin: 02/20/17 09:52 Dose: 220 mg - Labs Labs: 02/20/17 07:00 02/20/17 09:45 PT 10.1 Seconds (9.9-11.8) 02/17/17 19:18 INR 0.94 (0.93-1.08) 02/17/17 19:18 APTT 27.1 Seconds (23.7-30.8) 02/17/17 19:18 Attending/Attestation - Attestation I have personally seen and examined this patient.: Yes I have fully participated in the care of the patient.: Yes I have reviewed all pertinent clinical information, including history, physical exam and plan: Yes Notes (Text): 02/20/17 14:30 Patient was seen and examined with medical specialist .Agreed with resident assessment and plan. Patient is alert,awake and oriented today, still very anxious, lung sound are clear, will switch to oral Prednisone.Psychiatry is following. The issue of compliance with medication was discussed in detail with patient. Management plan was discussed in detail with patient Education was provided.
--- NOTE | 2017-02-20 18:02 | PN ---
DATE: 02/20/2017 Shortly, the patient is a 66-year-old male with history of bipolar disorder, history of ant isocial personality disorder, history of mood disorder due to general medical condition. The patient also has long history of COPD, end-stage. The patient also is alcoholic. The patient has history o f being admitted to the psychiatric inpatient unit. This technical writer is very familiar with this patient f rom the previous admissions on the medical floor as well as psychiatric inpatient unit. The patient was admitted for evaluation of altered mental status on the medical floor. Psych consult is for eval uation of episodes of agitation, also, confusion. Note from Dr. Stoll reviewed. Yesterday, patient was confused, did not know where he is. There is no option to have a meaningful conversation with th e patient. The patient was seen for followup today. The patient actively coughing. This technical writer waited for 20 m inutes for the patient to feel better, but apparently the patient was not able to talk full sentences . The patient is on 1:1. From this technical writer's standpoint, the patient was not able to participate in interview because of active cough. This technical writer suggested speech and swallow evaluation. As per Dr. Stoll's note, the patient did not have capacity to sign consent for treatment into the psychiatric in patient unit. Moreover, patient does not meet the criteria to transfer to the psychiatric inpatient unit. This technical writer reviewed vital signs and labs. Medications were resumed - Ativan as well as Zypre xa as well as depakene. The patient has chronic noncompliance with followup appointment and treatmen t and discharge plan. MENTAL STATUS EXAMINATION: Not able to evaluate because patient was actively coughing, was not able to talk full sentences. IMPRESSION: Most likely the patient is delirious. As per history, patient has history of bipolar di sorder, antisocial personality disorder. The patient also is alcoholic and rule out substance-induce d mood disorder. PLAN: Continue current management. Continue current medication. The patient is on 1:1. Physical t herapy consultation is appreciated. The patient was able to walk. Speech and swallow was suggested. Will follow up and advise accordingly. From this technical writer's perspective, patient did not want to go to the psychiatric inpatient unit, and change in mental status is related to the medical issues that patient has. This technical writer was not even able to evaluate patient due to active cough. Case was discus sed with the nursing staff. Should you have any questions, give me a call back. Nathaly Bergman MD cc: [id number] TT: 02/20/2017 18:01:07 Confirmation # [id number] Dictation # [id number] [id number]
[2017-02-20] MEDS: guaiFENesin DM 100 mg-10 mg/5 ml UD PO PRN (18:38)
[2017-02-20 20:40] VITALS: RESP 24; TEMP 97.8; O2SAT 92
[2017-02-21] MEDS: Azithromycin 500MG/NS 250ml 500 MG/250 ML BAG IVPB SCH (03:27)
[2017-02-21 06:53] LABS: ADD MANUAL DIFF? NO
[2017-02-21 07:06] LABS: BASO # 0.02 K/mm3 (0.0-2.0); BASO % 0.2 % (0.0-3.0); EOS # 0.4 (0.0-0.7); EOS % 3.6 % (1.5-5.0); GRAN # 6.45 (1.4-6.5); GRAN % 62.9 % (50.0-68.0); HEMATOCRIT 36.8 % (42.0-52.0); LYMPH # 2.2 (1.2-3.4); LYMPH % 21.8 % (22.0-35.0); MEAN CELL VOLUME 99.2 fL (80.0-105.0); MEAN CORPUSCULAR HEMOGLOBIN 30.5 pg (25.0-35.0); MEAN CORPUSCULAR HGB CONC 30.7 g/dl (31.0-37.0); MEAN PLATELET VOLUME 9.3 fl (7.0-11.0); MONO # 1.2 (0.1-0.6); MONO % 11.5 % (1.0-6.0); PLATELET COUNT 272 10^3/uL (120.0-450.0); RED CELL DISTRIBUTION WIDTH 15.2 % (11.5-14.5); WHITE BLOOD COUNT 10.3 10^3/ul (4.5-11.0)
[2017-02-21 07:17] LABS: ALKALINE PHOSPHATASE 45 U/L (38-133); ALT/SGPT 27 U/L (7-56); AST/SGOT 26 U/L (15-59); BILIRUBIN,TOTAL 0.5 mg/dL (0.2-1.3); BLOOD UREA NITROGEN 9 mg/dL (7-21); CALCIUM 9.1 mg/dL (8.4-10.5); CHLORIDE 96 mmol/L (98-107); GFR AFRICAN-AMERICAN > 60; GLUCOSE,RANDOM 89 mg/dL (70-110); SODIUM 142 mmol/L (132-148); TOTAL PROTEIN 6.2 g/dL (5.8-8.3)
[2017-02-21 07:35] LABS: CARBON DIOXIDE 41 mmol/L (21-33)
[2017-02-21] MEDS: Levalbuterol 0.63 MG/3 ML Inhal Soln UD IH SCH ×2 (08:02→11:40)
[2017-02-21] MEDS: OLANZapine 5 mg Disintegrating Tab PO SCH (10:13)
[2017-02-21] MEDS: Multivitamin With Minerals Tab PO SCH (10:16)
[2017-02-21] MEDS: Enoxaparin 40 mg Syringe SC SCH (10:17)
[2017-02-21] MEDS: cefTRIAXone 1 gm 1 GM/100 ML BAG IVPB SCH (10:18)
[2017-02-21] MEDS: ACLIDINIUM BROMIDE 400 MCG IH SCH (10:19)
[2017-02-21 10:26] VITALS: PULSE 99
--- NOTE | 2017-02-21 13:53 | CP.PCM.DIS ---
<Taqueria Floyd - Last Filed: 02/22/17 16:24> Provider - Provider Date of Admission: 02/17/17 22:11 Attending physician: Marco Antonio Chauhan MD Consults: Dr. Mari Bergman Time Spent in preparation of Discharge (in minutes): 45 Hospital Course - Lab Results Lab Results: Micro Results 02/19/17 05:15 Urine Urine Culture - Final Gram Positive Cocci Most Recent Lab Values WBC 10.3 10^3/ul (4.5-11.0) D 02/21/17 06:30 RBC 3.71 10^6/uL (3.5-6.1) 02/21/17 06:30 Hgb 11.3 gm/dL (14.0-18.0) L 02/21/17 06:30 Hct 36.8 % (42.0-52.0) L 02/21/17 06:30 MCV 99.2 fL (80.0-105.0) 02/21/17 06:30 MCH 30.5 pg (25.0-35.0) 02/21/17 06:30 MCHC 30.7 g/dl (31.0-37.0) L 02/21/17 06:30 RDW 15.2 % (11.5-14.5) H 02/21/17 06:30 Plt Count 272 10^3/uL (120.0-450.0) 02/21/17 06:30 MPV 9.3 fl (7.0-11.0) 02/21/17 06:30 Gran % 62.9 % (50.0-68.0) 02/21/17 06:30 Lymph % (Auto) 21.8 % (22.0-35.0) L 02/21/17 06:30 [place] % (Auto) 11.5 % (1.0-6.0) H 02/21/17 06:30 Eos % (Auto) 3.6 % (1.5-5.0) 02/21/17 06:30 Baso % (Auto) 0.2 % (0.0-3.0) 02/21/17 06:30 Gran # 6.45 (1.4-6.5) 02/21/17 06:30 Lymph # 2.2 (1.2-3.4) 02/21/17 06:30 [place] # 1.2 (0.1-0.6) H 02/21/17 06:30 Eos # 0.4 (0.0-0.7) 02/21/17 06:30 Baso # 0.02 K/mm3 (0.0-2.0) 02/21/17 06:30 PT 10.1 Seconds (9.9-11.8) 02/17/17 19:18 INR 0.94 (0.93-1.08) 02/17/17 19:18 APTT 27.1 Seconds (23.7-30.8) 02/17/17 19:18 Sodium 142 mmol/L (132-148) 02/21/17 06:30 Potassium 4.0 mmol/L (3.6-5.0) 02/21/17 06:30 Chloride 96 mmol/L (98-107) L 02/21/17 06:30 Carbon Dioxide 41 mmol/L (21-33) H 02/21/17 06:30 Anion Gap 9 (10-20) L 02/21/17 06:30 BUN 9 mg/dL (7-21) 02/21/17 06:30 Creatinine 0.4 mg/dL (0.5-1.4) L 02/21/17 06:30 Est GFR ( Amer) > 60 02/21/17 06:30 Est GFR (Non-Af Amer) > 60 02/21/17 06:30 Random Glucose 89 mg/dL (70-110) 02/21/17 06:30 Calcium 9.1 mg/dL (8.4-10.5) 02/21/17 06:30 Phosphorus 3.7 mg/dL (2.5-4.5) 02/17/17 19:18 Magnesium 2.0 mg/dL (1.7-2.2) 02/17/17 19:18 Total Bilirubin 0.5 mg/dL (0.2-1.3) 02/21/17 06:30 AST 26 U/L (15-59) 02/21/17 06:30 ALT 27 U/L (7-56) 02/21/17 06:30 Alkaline Phosphatase 45 U/L (38-133) 02/21/17 06:30 Lactate Dehydrogenase 344 U/L (333-699) 02/17/17 19:18 Total Creatine Kinase 54 U/L (35-230) 02/18/17 07:10 Troponin I < 0.01 ng/mL D 02/18/17 13:50 NT-Pro-B Natriuret Pep 72.6 pg/mL (0-450) 02/17/17 19:18 Total Protein 6.2 g/dL (5.8-8.3) 02/21/17 06:30 Albumin 3.1 g/dL (3.0-4.8) 02/21/17 06:30 Globulin 3.1 gm/dL 02/21/17 06:30 Albumin/Globulin Ratio 1.0 (1.1-1.8) L 02/21/17 06:30 Urine Color Yellow (YELLOW) 02/19/17 05:15 Urine Appearance Clear (CLEAR) 02/19/17 05:15 Urine pH 7.0 (4.7-8.0) 02/19/17 05:15 Ur Specific [place] 1.010 (1.005-1.035) 02/19/17 05:15 Urine Protein Negative mg/dL (<30 mg/dL) 02/19/17 05:15 Urine Glucose (UA) Negative mg/dL (NEGATIVE) 02/19/17 05:15 Urine Ketones Negative mg/dL (NEGATIVE) 02/19/17 05:15 Urine Blood Negative (NEGATIVE) 02/19/17 05:15 Urine Nitrate Negative (NEGATIVE) 02/19/17 05:15 Urine Bilirubin Negative (NEGATIVE) 02/19/17 05:15 Urine Urobilinogen 0.2 E.U./dL (<1 E.U./dL) 02/19/17 05:15 Ur Leukocyte Esterase Negative Fawad/uL (NEGATIVE) 02/19/17 05:15 Urine Opiates Screen Negative (NEGATIVE) 02/19/17 05:15 Urine Methadone Screen Negative (NEGATIVE) 02/19/17 05:15 Ur Barbiturates Screen Negative (NEGATIVE) 02/19/17 05:15 Ur Phencyclidine Scrn Negative (NEGATIVE) 02/19/17 05:15 Ur Amphetamines Screen Negative (NEGATIVE) 02/19/17 05:15 U Benzodiazepines Scrn Positive (NEGATIVE) H 02/19/17 05:15 U Oth Cocaine Metabols Negative (NEGATIVE) 02/19/17 05:15 U Cannabinoids Screen Negative (NEGATIVE) 02/19/17 05:15 Alcohol, Quantitative < 10 mg/dL (0-10) 02/18/17 10:19 - Hospital Course Hospital Course: H&P: 66M w/PMH sig for anxiety, COPD, multiple co-morbities admitted for SOB x 1 day. 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 Per ED attending- pt was at [facility] prior to [place] [facility] [place] He went home for less than an 1 hr when pt started to experience symptoms of panic attack- SOB, palpitations, chest pain, nausea. Pt called EMS for transport to hospital. Denies recent illness, emesis, F/C, abdominal pain, RIVERA, vision changes, hearing changes, changes in bowel or bladder habits, numbness or tingling in extremities, cough, wheezing. Patient is a 66 y/o M who presented with shortness of breath and altered mental status. He was found to be afebrile with mild leukocytosis. Chest x-ray performed showed emphysematous changes and biapical pleural scarring. He was started on IV steroids and breathing treatments. His symptoms improved. He was found to have a urinary tract infection of gram positive cocci. He was started on Rocephin and Azithromycin. His breathing improved with steroids which were tapered. Psychiatry was consulted who recommended resuming home medications. His mental status improved and he wanted to return home. He was determined medically stable for discharge. His home medications were refilled and sent home on a prednisone taper and doxycline. He was advised to:Y take Prednisone 15 mg daily for 2 days, then 10mg daily for 2 days, and 5mg daily for 2 days; take prescriptions as written; refrain form alcohol, tobacco, or drug use; [facility] or [facility]; and if your condition worsens or new symptoms arise, please return to the emergency room. His family was contacted and advised to bring home oxygen tank to travel home with. He verbalized understanding and was discharged home with family. This is a brief summary of the patient's stay at this facility. For more detail , see patient's full chart. - Date & Time of H&P Date of H&P: 02/17/17 Time of H&P: 22:44 Discharge Exam - Head Exam Head Exam: ATRAUMATIC, NORMOCEPHALIC - Eye Exam Eye Exam: EOMI, Normal appearance, PERRL Pupil Exam: NORMAL ACCOMODATION, PERRL - ENT Exam ENT Exam: Mucous Membranes Moist, Normal Oropharynx - Respiratory Exam Respiratory Exam: NORMAL BREATHING PATTERN. absent: Rales, Rhonchi, Wheezes - Cardiovascular Exam Cardiovascular Exam: REGULAR RHYTHM, +S1, +S2, Systolic Murmur (+2 systolic murmur) - GI/Abdominal Exam GI & Abdominal Exam: Normal Bowel Sounds, Soft. absent: Tenderness - Extremities Exam Extremities exam: normal capillary refill, pedal pulses present Additional comments: bruising along both upper extremities. - Neurological Exam Neurological exam: Alert, CN II-XII Intact, Oriented x3 - Psychiatric Exam Psychiatric exam: Anxious Additional comments: irritable - Skin Skin Exam: Dry, Intact, Normal Color, Warm Discharge Plan - Discharge Medications Prescriptions: Aclidinium [place] [Tudorza Pressair] 400 mcg IH Q12 30 Days Albuterol 0.083% [Albuterol 0.083% Inhal Hanane (2.5 mg/3 ml) UD] 3 ml IH Q4 PRN 30 Days PRN Reason: Shortness Of Breath Ascorbic Acid [Vitamin C 500 mg Tab] 500 mg PO DAILY #30 tab Aspirin [Ecotrin] 81 mg PO DAILY #30 tabec Benztropine [Cogentin] 0.5 mg PO BID #60 tab Cyanocobalamin [Vitamin B12 1000 mcg Tab] 1,000 mcg PO DAILY #30 tab Docusate [Colace] 100 mg PO DAILY #30 cap Doxycycline Hyclate 100 mg PO BID #10 capsule Lorazepam [Ativan] 0.5 mg PO TID PRN #30 tab PRN Reason: Anxiety Metoprolol Tartrate [Lopressor] 25 mg PO BID #60 tab Mirtazapine [Remeron] 15 mg PO HS PRN #30 tab PRN Reason: Insomnia Multimineral/Multivitamin [Therapeutic-M Tab] 1 tab PO DAILY #30 tab OLANZapine [Zyprexa Zydis] 5 mg PO AMHS #60 odt predniSONE [predniSONE Tab] 10 mg PO DAILY #2 tab predniSONE [predniSONE Tab] 5 mg PO DAILY #2 tab Prednisone [Monica] 15 mg PO DAILY #2 tablet. Valproic Acid [Depakene] 500 mg PO AMHS #120 capsule Zinc [Zinc Sulfate 220 mg Cap] 220 mg PO DAILY #30 cap - Follow Up Plan Condition: FAIR Disposition: HOME/ ROUTINE Instructions: COPD (Chronic Obstructive Pulmonary Disease) (DC) Additional Instructions: You are medically stable for discharge. Your [place] [facility] [place]. Please take Prednisone 15 mg daily for 2 days, then 10mg daily for 2 days, and 5mg daily for 2 days. Please take prescriptions as written. Please refrain form alcohol, tobacco, or drug use. Please [facility] with the [facility] or primary care physician. If your condition worsens or new symptoms arise, please return to the emergency room. <Gissel WORTHINGTON,[place] citysonam - Last Filed: 02/23/17 17:10> Provider - Provider Date of Admission: 02/17/17 22:11 Attending physician: Marco Antonio Chauhan MD Hospital Course - Lab Results Lab Results: Micro Results 02/19/17 05:15 Urine Urine Culture - Final Gram Positive Cocci Most Recent Lab Values WBC 10.3 10^3/ul (4.5-11.0) D 02/21/17 06:30 RBC 3.71 10^6/uL (3.5-6.1) 02/21/17 06:30 Hgb 11.3 gm/dL (14.0-18.0) L 02/21/17 06:30 Hct 36.8 % (42.0-52.0) L 02/21/17 06:30 MCV 99.2 fL (80.0-105.0) 02/21/17 06:30 MCH 30.5 pg (25.0-35.0) 02/21/17 06:30 MCHC 30.7 g/dl (31.0-37.0) L 02/21/17 06:30 RDW 15.2 % (11.5-14.5) H 02/21/17 06:30 Plt Count 272 10^3/uL (120.0-450.0) 02/21/17 06:30 MPV 9.3 fl (7.0-11.0) 02/21/17 06:30 Gran % 62.9 % (50.0-68.0) 02/21/17 06:30 Lymph % (Auto) 21.8 % (22.0-35.0) L 02/21/17 06:30 [place] % (Auto) 11.5 % (1.0-6.0) H 02/21/17 06:30 Eos % (Auto) 3.6 % (1.5-5.0) 02/21/17 06:30 Baso % (Auto) 0.2 % (0.0-3.0) 02/21/17 06:30 Gran # 6.45 (1.4-6.5) 02/21/17 06:30 Lymph # 2.2 (1.2-3.4) 02/21/17 06:30 [place] # 1.2 (0.1-0.6) H 02/21/17 06:30 Eos # 0.4 (0.0-0.7) 02/21/17 06:30 Baso # 0.02 K/mm3 (0.0-2.0) 02/21/17 06:30 PT 10.1 Seconds (9.9-11.8) 02/17/17 19:18 INR 0.94 (0.93-1.08) 02/17/17 19:18 APTT 27.1 Seconds (23.7-30.8) 02/17/17 19:18 Sodium 142 mmol/L (132-148) 02/21/17 06:30 Potassium 4.0 mmol/L (3.6-5.0) 02/21/17 06:30 Chloride 96 mmol/L (98-107) L 02/21/17 06:30 Carbon Dioxide 41 mmol/L (21-33) H 02/21/17 06:30 Anion Gap 9 (10-20) L 02/21/17 06:30 BUN 9 mg/dL (7-21) 02/21/17 06:30 Creatinine 0.4 mg/dL (0.5-1.4) L 02/21/17 06:30 Est GFR ( Amer) > 60 02/21/17 06:30 Est GFR (Non-Af Amer) > 60 02/21/17 06:30 Random Glucose 89 mg/dL (70-110) 02/21/17 06:30 Calcium 9.1 mg/dL (8.4-10.5) 02/21/17 06:30 Phosphorus 3.7 mg/dL (2.5-4.5) 02/17/17 19:18 Magnesium 2.0 mg/dL (1.7-2.2) 02/17/17 19:18 Total Bilirubin 0.5 mg/dL (0.2-1.3) 02/21/17 06:30 AST 26 U/L (15-59) 02/21/17 06:30 ALT 27 U/L (7-56) 02/21/17 06:30 Alkaline Phosphatase 45 U/L (38-133) 02/21/17 06:30 Lactate Dehydrogenase 344 U/L (333-699) 02/17/17 19:18 Total Creatine Kinase 54 U/L (35-230) 02/18/17 07:10 Troponin I < 0.01 ng/mL D 02/18/17 13:50 NT-Pro-B Natriuret Pep 72.6 pg/mL (0-450) 02/17/17 19:18 Total Protein 6.2 g/dL (5.8-8.3) 02/21/17 06:30 Albumin 3.1 g/dL (3.0-4.8) 02/21/17 06:30 Globulin 3.1 gm/dL 02/21/17 06:30 Albumin/Globulin Ratio 1.0 (1.1-1.8) L 02/21/17 06:30 Urine Color Yellow (YELLOW) 02/19/17 05:15 Urine Appearance Clear (CLEAR) 02/19/17 05:15 Urine pH 7.0 (4.7-8.0) 02/19/17 05:15 Ur Specific [place] 1.010 (1.005-1.035) 02/19/17 05:15 Urine Protein Negative mg/dL (<30 mg/dL) 02/19/17 05:15 Urine Glucose (UA) Negative mg/dL (NEGATIVE) 02/19/17 05:15 Urine Ketones Negative mg/dL (NEGATIVE) 02/19/17 05:15 Urine Blood Negative (NEGATIVE) 02/19/17 05:15 Urine Nitrate Negative (NEGATIVE) 02/19/17 05:15 Urine Bilirubin Negative (NEGATIVE) 02/19/17 05:15 Urine Urobilinogen 0.2 E.U./dL (<1 E.U./dL) 02/19/17 05:15 Ur Leukocyte Esterase Negative Fawad/uL (NEGATIVE) 02/19/17 05:15 Urine Opiates Screen Negative (NEGATIVE) 02/19/17 05:15 Urine Methadone Screen Negative (NEGATIVE) 02/19/17 05:15 Ur Barbiturates Screen Negative (NEGATIVE) 02/19/17 05:15 Ur Phencyclidine Scrn Negative (NEGATIVE) 02/19/17 05:15 Ur Amphetamines Screen Negative (NEGATIVE) 02/19/17 05:15 U Benzodiazepines Scrn Positive (NEGATIVE) H 02/19/17 05:15 U Oth Cocaine Metabols Negative (NEGATIVE) 02/19/17 05:15 U Cannabinoids Screen Negative (NEGATIVE) 02/19/17 05:15 Alcohol, Quantitative < 10 mg/dL (0-10) 02/18/17 10:19 Attending/Attestation - Attestation I have personally seen and examined this patient.: Yes I have fully participated in the care of the patient.: Yes I have reviewed all pertinent clinical information, including history, physical exam and plan: Yes Notes (Text): 02/23/17 17:07 Patient is feeling better today, cough and dyspnea has improved.He is not wheezing. He has refused to go to Psychiatry.He wants to go home as eraly as possible. The issue of compliance with medication was discussed in detail with him.He has been started on tapering dose of prednsione.Refiils were given for his inhalers.He is at base line hypoxia, he will be discharged home and will [facility] [place]. He is very non compliance, risk of readmission is very high. Prognosis is guarded.
--- NOTE | 2017-02-21 16:38 | PN ---
DATE: 02/21/2017 The patient was followed up today. The patient presented better. The patient reported to have good appetite and sleep. The patient denied being depressed. The patient wants to be discharged today. The patient denied thoughts of harming himself or others. Denied intent or plan. The patient denied hearing voices, denied seeing things. The patient was observed eating with a good appetite. Vital signs are stable. Pulse is 99, blood pressure 129/80. MEDICATIONS: Reviewed. Albuterol, vitamin C, aspirin, Zithromax, Cogentin 0.5 mg twice a day, vitamin B12, Colace, Lovenox, Pepcid, Robitussin, Xopenex, Ativan 1 mg IV push q. 4 hours as needed, last dose was yesterday. Ativan 0.5 mg 3 times a day, Lopressor, Remeron 15 mg at the nighttime, mu ltivitamins, thiamine, Nicoderm, Zyprexa Zydis 5 mg twice a day, prednisone 20 mg daily, Depakote 500 mg twice a day and zinc sulfate. LABORATORY DATA: Reviewed. Seem to be within normal limits. Hemoglobin and hematocrit on lower suzi e 11.3 and 36.8, the rest seems to be improving. MENTAL STATUS EXAMINATION: The patient presented well, alert and oriented. The patient had fair eye contact. Speech was loud, which is chronic. Mood described, "I want to get out of here." Affect w as irritable. Mood congruent. Thought process was circumstantial. Thought content: The patient de nied visual, auditory, tactile hallucinations. Denied paranoid ideation. The patient denied thought s of harming himself or others, denied intent or plan. Insight and judgment are improving. Impulses are well controlled. IMPRESSION: The patient has history of antisocial personality disorder and borderline personality di sorder. The patient also has mood disorder due to general medical condition, history of bipolar diso rder. The patient has multiple medical issues which could affect the patient's mood and presentation . The patient has history of delirium. Please see medical team notes for more detailed information. The patient also has chronic obstructive pulmonary disease, end stage. PLAN: The patient should be discharged on all psychotropic medication. The patient needs to be foll owed up with outpatient psychiatrist. The patient deemed not to be in danger to self or others. Thi s automobile service writer will sign off. Case was discussed with the medical technologist generalist and nursing staff. Thank you very much for letting me participate in the care of your patient. Nathaly Bergman MD cc: [id number] TT: 02/21/2017 16:38:28 Confirmation # [id number] Dictation # [id number]
[2017-02-21 17:32] VITALS: BP 126/84
== END 2017-02-21 18:58 | disposition home or self-care (01) | DRG 191 ==
LOC: ED 18:51 → ERH 22:11 → 2RNO 02-18 00:06 → 3RNO 02-20 15:46
PROVIDERS: ADMIT Internal Medicine; ATTEND Internal Medicine
PROC: 5A09357 Assistance with Respiratory Ventilation, Less than 24 Consecutive Hours, Continuous Positive Airway Pressure (ICD-10-PCS; principal; 2017-02-17)
PROC: 3E0F7GC Introduction of Other Therapeutic Substance into Respiratory Tract, Via Natural or Artificial Opening (ICD-10-PCS; 2017-02-18)
DX: J44.1 Chronic obstructive pulmonary disease with (acute) exacerbation (principal); E87.1 Hypo-osmolality and hyponatremia; I25.10 Atherosclerotic heart disease of native coronary artery without angina pectoris; Z99.81 Dependence on supplemental oxygen; F31.60 Bipolar disorder, current episode mixed, unspecified; I11.0 Hypertensive heart disease with heart failure; I50.9 Heart failure, unspecified; G40.909 Epilepsy, unspecified, not intractable, without status epilepticus; F10.10 Alcohol abuse, uncomplicated; F60.2 Antisocial personality disorder; F41.0 Panic disorder [episodic paroxysmal anxiety]; M19.90 Unspecified osteoarthritis, unspecified site; F43.10 Post-traumatic stress disorder, unspecified; F06.30 Mood disorder due to known physiological condition, unspecified; R41.0 Disorientation, unspecified; F60.3 Borderline personality disorder; Z91.19 Patient's noncompliance with other medical treatment and regimen; Z78.1 Physical restraint status; Z91.5 Personal history of self-harm; Z95.5 Presence of coronary angioplasty implant and graft

== ENCOUNTER 2017-02-21 21:44 | Inpatient (IN) | payer MEDICARE, OTHER ==
[2017-02-21 21:55] VITALS: BMI 22.4
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
[2017-02-21] MEDS ORDERED: Albuterol-Ipratrop 3 mg / 0.5 (3 ml) UD IH STA (22:12)
[2017-02-21 23:15] LABS: HEMATOCRIT 40.1 % (42.0-52.0); MEAN CELL VOLUME 99.5 fL (80.0-105.0); MEAN CORPUSCULAR HEMOGLOBIN 31.8 pg (25.0-35.0); MEAN CORPUSCULAR HGB CONC 31.9 g/dl (31.0-37.0); MEAN PLATELET VOLUME 9.2 fl (7.0-11.0); RED CELL DISTRIBUTION WIDTH 15.2 % (11.5-14.5)
[2017-02-22] MEDS ORDERED: Albuterol-Ipratrop 3 mg / 0.5 (3 ml) UD IH STA (00:16)
[2017-02-22 00:21] LABS: ALB/GLOB RATIO 1.1 (1.1-1.8); ALKALINE PHOSPHATASE 63 U/L (38-133); ALT/SGPT 34 U/L (7-56); AST/SGOT 17 U/L (15-59); BILIRUBIN,TOTAL 0.5 mg/dL (0.2-1.3); BLOOD UREA NITROGEN 9 mg/dL (7-21); CALCIUM 9.3 mg/dL (8.4-10.5); CHLORIDE 90 mmol/L (98-107); GFR AFRICAN-AMERICAN > 60; GLUCOSE,RANDOM 136 mg/dL (70-110); SODIUM 139 mmol/L (132-148)
[2017-02-22 00:28] LABS: CARBON DIOXIDE 40 mmol/L (21-33)
[2017-02-22 00:38] LABS: TROPONIN I < 0.01 ng/mL
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
[2017-02-22] MEDS: Albuterol-Ipratrop 3 mg / 0.5 (3 ml) UD IH SCH ×5 (02:10→19:41)
[2017-02-22] MEDS: Pantoprazole 40 mg EC Tab PO SCH (06:41)
--- NOTE | 2017-02-22 07:21 | RAD ---
HISTORY: fever COMPARISON: February 17 1017 FINDINGS: LUNGS: Moderate emphysematous changes upper lobe predominant similar-appearing. Biapical pleural-parenchymal reaction/changes -similar-appearing No interval consolidation. PLEURA: No significant pleural effusion identified, no pneumothorax apparent. Biapical pleural changes as above CARDIOVASCULAR: Normal heart size. Mild at ascending aortic prominence -aortic knob calcification OSSEOUS STRUCTURES: Bilateral shoulder arthrosis VISUALIZED UPPER ABDOMEN: Normal. OTHER FINDINGS: None. IMPRESSION: No interval pathology, specifically no interval infiltrate noted. Chronic pleural-parenchymal changes -biapical prominence. Concomitant upper lobe predominant emphysematous changes
[2017-02-22] MEDS: Arformoterol 15 mcg/2 ml Inh Sol IH SCH ×3 (07:52→18:15)
[2017-02-22] MEDS: Budesonide 0.5 mg/2 ml Inhal Susp UD IH SCH ×3 (07:52→18:20)
[2017-02-22 08:41] LABS: ADD MANUAL DIFF? NO; GRAN # 6.18 (1.4-6.5); GRAN % 90.1 % (50.0-68.0); HEMATOCRIT 40.6 % (42.0-52.0); LYMPH # 0.5 (1.2-3.4); LYMPH % 7.7 % (22.0-35.0); MEAN CELL VOLUME 98.8 fL (80.0-105.0); MEAN CORPUSCULAR HEMOGLOBIN 31.4 pg (25.0-35.0); MEAN CORPUSCULAR HGB CONC 31.8 g/dl (31.0-37.0); MEAN PLATELET VOLUME 9.4 fl (7.0-11.0); MONO # 0.2 (0.1-0.6); MONO % 2.2 % (1.0-6.0); PLATELET COUNT 259 [, 10^3/uL] (120.0-450.0); RED CELL DISTRIBUTION WIDTH 15.1 % (11.5-14.5); WHITE BLOOD COUNT 6.9 [, 10^3/ul] (4.5-11.0)
[2017-02-22] MEDS: OLANZapine 5 mg Disintegrating Tab PO SCH ×2 (09:46→22:58)
[2017-02-22] MEDS: Multivitamin With Minerals Tab PO SCH (09:46)
[2017-02-22] MEDS: MethylPREDNISolone 40 mg Vial IVP SCH ×2 (09:47→22:54)
[2017-02-22] MEDS ORDERED: PREDNISONE 15 MG PO SCH (10:00)
[2017-02-22 12:27] LABS: ALB/GLOB RATIO 1.2 (1.1-1.8); ALKALINE PHOSPHATASE 51 U/L (38-133); ALT/SGPT 30 U/L (7-56); AST/SGOT 28 U/L (15-59); BILIRUBIN,TOTAL 0.5 mg/dL (0.2-1.3); BLOOD UREA NITROGEN 11 mg/dL (7-21); CALCIUM 9.6 mg/dL (8.4-10.5); CARBON DIOXIDE 37 mmol/L (21-33); CHLORIDE 92 mmol/L (98-107); GFR AFRICAN-AMERICAN > 60; GLUCOSE,RANDOM 142 mg/dL (70-110); MAGNESIUM 2.7 mg/dL (1.7-2.2); PHOSPHOROUS 4.5 mg/dL (2.5-4.5); POTASSIUM 4.5 mmol/L (3.6-5.0); SODIUM 139 mmol/L (132-148); TOTAL PROTEIN 6.9 g/dL (5.8-8.3)
[2017-02-22 14:03] LABS: URINE BILIRUBIN NEGATIVE (NEGATIVE); URINE BLOOD NEGATIVE (NEGATIVE); URINE GLUCOSE (UA) NEGATIVE (NEGATIVE); URINE KETONE NEGATIVE (NEGATIVE); URINE LEUKOCYTE ESTERASE NEGATIVE Leu/uL (NEGATIVE); URINE PROTEIN NEGATIVE mg/dL (<30 mg/dL); URINE UROBILINOGEN 0.2 E.U./dL (<1 E.U./dL)
[2017-02-22 14:05] LABS: URINE APPEARANCE CLEAR (CLEAR); URINE COLOR YELLOW (YELLOW)
--- NOTE | 2017-02-22 21:49 | CARD ---
APPROVED REPORT EKG Measurement Heart [id number] <Conclusion> Normal sinus rhythm Voltage criteria for left ventricular hypertrophy Abnormal ECG
[2017-02-23] MEDS: Albuterol-Ipratrop 3 mg / 0.5 (3 ml) UD IH SCH ×4 (01:21→20:28)
[2017-02-23] MEDS: Pantoprazole 40 mg EC Tab PO SCH (06:25)
[2017-02-23 07:44] LABS: ADD MANUAL DIFF? NO
[2017-02-23] MEDS: Budesonide 0.5 mg/2 ml Inhal Susp UD IH SCH ×2 (07:47→20:28)
[2017-02-23] MEDS: Arformoterol 15 mcg/2 ml Inh Sol IH SCH ×2 (07:47→20:28)
[2017-02-23 07:49] LABS: GRAN # 7.23 (1.4-6.5); GRAN % 87.7 % (50.0-68.0); HEMATOCRIT 39.2 % (42.0-52.0); LYMPH # 0.7 (1.2-3.4); LYMPH % 7.9 % (22.0-35.0); MEAN CELL VOLUME 98.5 fL (80.0-105.0); MEAN CORPUSCULAR HEMOGLOBIN 30.9 pg (25.0-35.0); MEAN CORPUSCULAR HGB CONC 31.4 g/dl (31.0-37.0); MEAN PLATELET VOLUME 9.3 fl (7.0-11.0); MONO # 0.4 (0.1-0.6); MONO % 4.4 % (1.0-6.0); PLATELET COUNT 287 [, 10^3/uL] (120.0-450.0); RED CELL DISTRIBUTION WIDTH 15.2 % (11.5-14.5); WHITE BLOOD COUNT 8.2 [, 10^3/ul] (4.5-11.0)
[2017-02-23] MEDS ORDERED: Albuterol-Ipratrop 3 mg / 0.5 (3 ml) UD IH STA (07:51)
[2017-02-23 07:59] LABS: BLOOD UREA NITROGEN 13 mg/dL (7-21); CALCIUM 9.9 mg/dL (8.4-10.5); CARBON DIOXIDE 35 mmol/L (21-33); CHLORIDE 94 mmol/L (95-110); GFR AFRICAN-AMERICAN > 60; GLUCOSE,RANDOM 163 mg/dL (70-110); POTASSIUM 4.9 mmol/L (3.6-5.0); SODIUM 140 mmol/L (132-148)
[2017-02-23 09:18] LABS: ARTERIAL BLOOD GAS HCO3 39.1 mmol/L (21-28); ARTERIAL BLOOD GAS O2 CONTENT 15.9 ML/dl (15-23); ARTERIAL BLOOD GAS PH 7.46 (7.35-7.45); ARTERIAL BLOOD HGB O2 SAT 97.3 % (95.0-98.0); CARBOXYHEMOGLOBIN 1.5 % (0.5-1.5); HHB 0.4 % (0-5); METHEMOGLOBIN 0.8 % (0.0-3.0)
[2017-02-23] MEDS: Multivitamin With Minerals Tab PO SCH (10:22)
[2017-02-23] MEDS: OLANZapine 5 mg Disintegrating Tab PO SCH ×2 (10:22→22:09)
[2017-02-23] MEDS: MethylPREDNISolone 40 mg Vial IVP SCH (10:25)
[2017-02-23] MEDS ORDERED: diaZEpam 10 mg/2 ml Inj IVP ONE (11:07)
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
[2017-02-24] MEDS: Albuterol-Ipratrop 3 mg / 0.5 (3 ml) UD IH SCH ×6 (01:22→23:24)
[2017-02-24] MEDS: Pantoprazole 40 mg EC Tab PO SCH (05:30)
[2017-02-24 06:50] LABS: ADD MANUAL DIFF? NO
[2017-02-24 07:06] LABS: ALB/GLOB RATIO 1.1 (1.1-1.8); ALKALINE PHOSPHATASE 60 U/L (38-133); ALT/SGPT 32 U/L (7-56); AST/SGOT 24 U/L (15-59); BILIRUBIN,TOTAL 0.4 mg/dL (0.2-1.3); BLOOD UREA NITROGEN 15 mg/dL (7-21); CALCIUM 9.8 mg/dL (8.4-10.5); CHLORIDE 96 mmol/L (95-110); GFR AFRICAN-AMERICAN > 60; GLUCOSE,RANDOM 90 mg/dL (70-110); POTASSIUM 3.6 mmol/L (3.6-5.0); SODIUM 143 mmol/L (132-148); TOTAL PROTEIN 6.8 g/dL (5.8-8.3)
[2017-02-24 07:16] LABS: CARBON DIOXIDE 40 mmol/L (21-33)
[2017-02-24 07:20] LABS: BASO # 0.02 [, K/mm3] (0.0-2.0); BASO % 0.2 % (0.0-3.0); EOS # 0.4 (0.0-0.7); EOS % 3.1 % (1.5-5.0); GRAN # 7.98 (1.4-6.5); GRAN % 61.5 % (50.0-68.0); HEMATOCRIT 38.7 % (42.0-52.0); LYMPH # 3.1 (1.2-3.4); LYMPH % 23.6 % (22.0-35.0); MEAN CORPUSCULAR HEMOGLOBIN 31.1 pg (25.0-35.0); MEAN CORPUSCULAR HGB CONC 31.8 g/dl (31.0-37.0); MEAN PLATELET VOLUME 9.5 fl (7.0-11.0); MONO # 1.5 (0.1-0.6); MONO % 11.6 % (1.0-6.0); PLATELET COUNT 294 [, 10^3/uL] (120.0-450.0); RED CELL DISTRIBUTION WIDTH 15.5 % (11.5-14.5)
[2017-02-24] MEDS: Budesonide 0.5 mg/2 ml Inhal Susp UD IH SCH ×2 (07:45→20:32)
[2017-02-24] MEDS: Arformoterol 15 mcg/2 ml Inh Sol IH SCH ×2 (07:45→20:32)
--- NOTE | 2017-02-24 08:06 | PN ---
DATE: 02/22/2017 The patient was discharged yesterday, came back to the hospital complaining of shortness of breath. The patient was admitted on the medical floor. Psych consult was called for evaluation of possible a nxiety symptoms and mood symptoms. The patient was seen by this automobile service writer yesterday and today for clemente estrada. The patient has no acute changes with his presentation. The patient denied thoughts of harming himself or others. Reported to feel irritable. The patient said the reason why he came back to the hospital, because he was anxious. The patient's family has some family gathering and he was alone a nd he was feeling lonely and that is why he started to feel anxious and brought himself to the hospit al because he did not want to . The patient reported that he was not able to fill his medication and missed his benzodiazepines as well as mood stabilizer and antipsychotic medication. VITAL SIGNS: Stable. Temperature 98, pulse of 92, blood pressure 127/73, respiration 18, oxygen sat uration was not done. MEDICATIONS: Reviewed. The patient is on Cogentin 0.5 mg twice a day. The patient is on antibiotic , doxycycline. The patient is on Ativan 0.5 mg 3 times a day, Remeron 15 mg at the nighttime as need ed for insomnia, Zyprexa Zydis 5 mg twice a day, Depakote 500 mg twice a day. LABORATORY DATA: Labs reviewed. MENTAL STATUS EXAMINATION: The patient presented to be alert and oriented. At times, could be loud. Intermittent eye contact. Speech was loud. Mood described, "I want to go home." Affect was const ricted and angry. Thought processes is coherent and goal directed. Thought content: The patient de nied visual, auditory, or tactile hallucinations. Denied paranoid ideation. The patient denied thou ghts of harming himself or others, denied intent or plan. Insight and judgment improving. Impulses are well controlled. IMPRESSION: The patient has end-stage chronic obstructive pulmonary disease and it could be giving h im anxiety symptoms. The patient has long history of bipolar disorder as well as rule out mood disor darryl due to general medical condition. The patient has history of alcohol abuse as well as poor impul se control as well as antisocial personality disorder. PLAN: Continue current management. Continue current medications. The patient deemed to be stable f or discharge. This automobile service writer could recommend to increase the dose of Ativan to 1 mg 3 times a day as ne eded for anxiety, but at the same time, benzodiazepines could suppress ____ and this automobile service writer had impre ssion if patient will be taking medication as was prescribed, patient might be doing much better. At the same time, patient seems to be not able to stay out of the hospital at least for a week or so, k eeps coming back to the hospital. food prep worker needs to be involved. The patient might benefit to go to the residential or assisted living facility. The patient's family needs to be involved. At t he same time, the patient deemed not to be in danger to self or others. This automobile service writer will sign off. Should you have any questions, give me a call back. Nathaly Bergman MD cc: [id number] TT: 02/22/2017 16:40:07 Confirmation # [id number] Dictation # [id number]
--- NOTE | 2017-02-24 09:20 | RAD ---
PROCEDURE: Left Hand Radiographs. HISTORY: swollen 5th digit COMPARISON: None. FINDINGS: BONES: Normal. No fracture. JOINTS: Normal. No osteoarthritic changes. SOFT TISSUES: Normal. OTHER FINDINGS: None. IMPRESSION: No acute findings
--- NOTE | 2017-02-24 09:20 | CT ---
PROCEDURE: CT HEAD WITHOUT CONTRAST. HISTORY: change of mental status COMPARISON: None available. TECHNIQUE: Axial computed tomography images were obtained through the head/brain without intravenous contrast. Radiation dose: Total exam DLP = 789.91 mGy-cm. This CT exam was performed using one or more of the following dose reduction techniques: Automated exposure control, adjustment of the mA and/or kV according to patient size, and/or use of iterative reconstruction technique. FINDINGS: HEMORRHAGE: No intracranial hemorrhage. BRAIN: There is cystic encephalomalacia in the left frontal lobe. There is an old lacunar infarction in the right caudate head. There is no mass, mass effect or abnormal extra-axial fluid collection. There are coarse atherosclerotic calcifications in the cavernous carotid arteries. VENTRICLES: There is moderate global parenchymal volume loss and proportionate enlargement of the ventricles and cortical sulci. CALVARIUM: The skull base and calvarium are normal. PARANASAL SINUSES: Predominantly clear. MASTOID AIR CELLS: Predominantly clear. OTHER FINDINGS: None. IMPRESSION: No acute intracranial abnormality. Left frontal lobe cystic encephalomalacia. 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 Moderate global parenchymal volume loss, advanced for the patient's age.
[2017-02-24] MEDS ORDERED: Sodium Chloride 0.9% 1,000 ML IV SCH (10:45)
[2017-02-24] MEDS: Multivitamin With Minerals Tab PO SCH (10:53)
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
[2017-02-24] MEDS: OLANZapine 5 mg Disintegrating Tab PO SCH ×2 (14:12→22:43)
--- NOTE | 2017-02-24 15:53 | PN ---
DATE: 02/24/2017 Shortly, the patient is a 66-year-old male. The patient has long history of COPD, end-stag e. The patient has history of antisocial personality, bipolar personality, history of bipolar disord er, history of admissions to the psychiatric inpatient unit. The patient was admitted on the medical floor for evaluation of shortness of breath, change in mental status as well as urinary tract infect ion. 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 The patient's mental status is fluctuating from being calm and cooperative to screaming and yelling that he wants to kill himself. At the same time, the patient b rought himself to the hospital looking for admission because he was scared to be . This type of presentation is most likely related to delirium stage. The patient was saying about some devices in his leg that prevent him to leave the hospital and it is connected to the door. The patient is psych otic, disorganized, screaming and yelling; needed to be medicated. VITAL SIGNS: Temperature 97.6, pulse is 96, blood pressure 155/95, respirations 20, oxygen saturatio n is 99. MEDICATIONS: Reviewed. Albuterol, DuoNeb, Brovana, vitamin C, aspirin, Cogentin, Pulmicort, vitamin s B12, Colace, doxycycline, heparin, Ativan 0.5 mg 3 times a day as needed which will be scheduled, L opressor, Remeron 15 mg at the nighttime for insomnia, multivitamins, Nicoderm, Zyprexa Zydis 5 mg in the morning time and at the nighttime, Protonix, prednisone, sodium chloride, depakene 500 mg twice a day, zinc sulfate and Geodon 10 mg IM q. 8 hours as needed for agitation. LABORATORIES: Reviewed, leukocytosis, but maybe it is related to the prednisone which patient is on. Chemistry reviewed. Urinalysis within normal limits. MENTAL STATUS EXAMINATION: The patient appears to be labile, at the beginning of the interview he is calm, during the interview the patient was screaming and yelling. The patient reports that his mood to be, "I'm perfectly fine, let me go home." Affect was constricted, angry, irritable. Mood: Inco ngruent. Thought process is disorganized. Thought content: The patient denied visual, auditory, or tactile hallucinations, but obviously the patient is feeling that some device is in his leg which is connected to some machine and it prevents him from leaving the hospital. The patient is disorganize d during the interview, but has lucid periods. The patient was screaming, "Document in my note that I want to kill myself." But at the same time, patient has tendency of antisocial personality and the patient keeps bringing some himself to the hospital looking for admission and he is scared to be angella d. Insight and judgment are very limited. Impulses are unpredictable. IMPRESSION: The patient most likely has delirium stage. The patient has episodes of being calm and cooperative and socially appropriate, alternating with agitated, restless, and psychotic behavior. IMPRESSION: The patient has history of mental illness including bipolar disorder, antisocial persona lity disorder, alcohol use disorder, multiple admissions in the past. Please see notes for more deta iled information. The patient also has multiple medical issues, end-stage chronic obstructive pulmon kerri disease. The patient was admitted to the medical floor for shortness of breath. PLAN: The patient is on Zyprexa Zydis 5 mg twice a day, should be continued. Ativan will be given a s scheduled 0.5 mg 3 times a day. The patient also has Geodon as needed for agitation. Depakote nee ds to be continued as 500 mg twice a day, Remeron 15 mg at the nighttime as needed for insomnia. Jacky e was discussed with medical team as well as residents as well as nursing staff. We will follow up a nd advise accordingly. Thank you very much for letting me participate in the care of your patient. Should you have any ques tions, give me a call back. Nathaly Bergman MD cc: [id number] TT: 02/24/2017 15:52:37 Confirmation # [id number] Dictation # [id number] elinor
[2017-02-25] MEDS: Albuterol-Ipratrop 3 mg / 0.5 (3 ml) UD IH SCH ×4 (04:39→14:49)
[2017-02-25] MEDS: Arformoterol 15 mcg/2 ml Inh Sol IH SCH ×3 (07:15→19:40)
[2017-02-25] MEDS: Albuterol 0.042% Inhal Sol (1.25 mg/3 mL) UD IH PRN (07:16)
[2017-02-25] MEDS: Budesonide 0.5 mg/2 ml Inhal Susp UD IH SCH ×2 (07:16→19:41)
[2017-02-25] MEDS: Pantoprazole 40 mg EC Tab PO SCH (07:36)
[2017-02-25 07:59] LABS: ADD MANUAL DIFF? NO
[2017-02-25 08:10] LABS: BASO # 0.01 [, K/mm3] (0.0-2.0); BASO % 0.1 % (0.0-3.0); EOS # 0.5 (0.0-0.7); EOS % 5.1 % (1.5-5.0); GRAN % 53.8 % (50.0-68.0); HEMATOCRIT 38.3 % (42.0-52.0); LYMPH # 2.8 (1.2-3.4); LYMPH % 30.7 % (22.0-35.0); MEAN CELL VOLUME 98.7 fL (80.0-105.0); MEAN CORPUSCULAR HEMOGLOBIN 30.9 pg (25.0-35.0); MEAN CORPUSCULAR HGB CONC 31.3 g/dl (31.0-37.0); MEAN PLATELET VOLUME 9.8 fl (7.0-11.0); MONO # 0.9 (0.1-0.6); MONO % 10.3 % (1.0-6.0); PLATELET COUNT 268 [, 10^3/uL] (120.0-450.0); WHITE BLOOD COUNT 9.1 [, 10^3/ul] (4.5-11.0)
[2017-02-25 08:29] LABS: BLOOD UREA NITROGEN 13 mg/dL (7-21); CALCIUM 9.6 mg/dL (8.4-10.5); CARBON DIOXIDE 36 mmol/L (21-33); CHLORIDE 99 mmol/L (95-110); GFR AFRICAN-AMERICAN > 60; GLUCOSE,RANDOM 68 mg/dL (70-110); MAGNESIUM 2.6 mg/dL (1.7-2.2); SODIUM 141 mmol/L (132-148)
--- NOTE | 2017-02-25 09:36 | CON ---
DATE: 02/25/2017 HISTORY OF PRESENT ILLNESS: The patient is a 66-year-old male with a history of antisocial personality disorder, bipolar disorder, history of admissions to psychiatric inpatient unit who is b ng monitored by psychiatry on the medical floor for symptoms of delirium with behavioral disturbanc e. I reviewed Dr. Bergman's notes and I am also familiar with patient from prior hospitalizations as well as interviews during this admission. I agree with Dr. Bergman, the patient is clearly stil l delirious. His mental status is fluctuating from being calm and cooperative to screaming, yelling, being argumentative and violent. His impulse control is poor and he becomes quite illogical in the course of the conversation with this provider or staff members. The patient contradicts himself at t imes and has told staff members that he wanted to , at the same time was scared to and thought process is overall disoriented and disorganized and this is unlike his baseline when he has been fol lowed by this psychiatrist on the inpatient psychiatric unit. Regarding his current mood he indicate s that he is, "shitty, depressed", indicates that he has thoughts of ending his life, but does not raygoza ve any plan. Denies any suicidal thoughts. As noted, the nursing notes indicate that the patient raygoza s been restless, unpredictable and disorganized, illogical and difficult redirecting, has required mu ltiple p.r.n.s. VITAL SIGNS AND LABORATORY DATA: Reviewed. RELEVANT PSYCHIATRIC MEDICATIONS INCLUDE: Ativan 0.5 mg p.o. t.i.d., Remeron 15 mg at bedtime p.r.n. , Zyprexa 5 mg a.m. and at bedtime, depakene 500 mg p.o. a.m. and at bedtime, and Geodon 10 mg IM q. 8 p.r.n. of which he received a dose of 7:31 this morning as well as this at 10:45 p.m. last night an d then again prior in the day 1:23 p.m. ASSESSMENT: The patient has delirium with behavioral disturbance that is the main cause of his issue s ____ . The patient does have a history of antisocial personality disorder, alcohol use disorder wh ich may play a part, though is not the cause of his current unpredictable behavior at this time. RECOMMENDATIONS: We will continue with current medication with emphasis on using ____ p.r.n. as nece ssary for his behavior. Unfortunately, there are no psychiatric medications that can clear delirium faster and delirium may take a week to improve even after the initial insult has been resolved. Milton dudley will continue to manage the behavioral manifestations of his delirium at this time. In this r espect, I would like to increase Depakote; however, on review of the records it does not appear to sh ow that a Depakote level has been done while the patient has been hospitalized, I will order that tod ay and then follow up again with the patient in the a.m. Mari Stoll MD cc: [id number] TT: 02/25/2017 09:35:37 Confirmation # [id number] Dictation # [id number] elinor
[2017-02-25] MEDS: Multivitamin With Minerals Tab PO SCH (11:00)
[2017-02-25] MEDS: OLANZapine 5 mg Disintegrating Tab PO SCH (11:00)
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
[2017-02-26] MEDS: OLANZapine 5 mg Disintegrating Tab PO SCH ×2 (00:01→10:06)
[2017-02-26] MEDS: Pantoprazole 40 mg EC Tab PO SCH (06:14)
[2017-02-26] MEDS: Albuterol-Ipratrop 3 mg / 0.5 (3 ml) UD IH SCH ×4 (07:06→20:20)
[2017-02-26] MEDS: Arformoterol 15 mcg/2 ml Inh Sol IH SCH ×2 (07:06→20:20)
[2017-02-26] MEDS: Budesonide 0.5 mg/2 ml Inhal Susp UD IH SCH ×2 (07:07→20:20)
[2017-02-26 09:07] LABS: ADD MANUAL DIFF? NO
[2017-02-26 09:19] LABS: ALB/GLOB RATIO 1.1 (1.1-1.8); ALKALINE PHOSPHATASE 41 U/L (38-133); ALT/SGPT 31 U/L (7-56); AST/SGOT 19 U/L (15-59); BILIRUBIN,TOTAL 0.7 mg/dL (0.2-1.3); BLOOD UREA NITROGEN 13 mg/dL (7-21); CALCIUM 9.3 mg/dL (8.4-10.5); CARBON DIOXIDE 36 mmol/L (21-33); CHLORIDE 94 mmol/L (98-107); GFR AFRICAN-AMERICAN > 60; GLUCOSE,RANDOM 122 mg/dL (70-110); POTASSIUM 4.1 mmol/L (3.6-5.0); SODIUM 137 mmol/L (132-148); TOTAL PROTEIN 6.7 g/dL (5.8-8.3)
[2017-02-26 09:22] LABS: BASO # 0.01 [, K/mm3] (0.0-2.0); BASO % 0.1 % (0.0-3.0); EOS # 0.5 (0.0-0.7); EOS % 3.9 % (1.5-5.0); GRAN # 7.52 (1.4-6.5); GRAN % 65.8 % (50.0-68.0); HEMATOCRIT 39.5 % (42.0-52.0); LYMPH # 2.4 (1.2-3.4); LYMPH % 20.9 % (22.0-35.0); MEAN CORPUSCULAR HEMOGLOBIN 31.1 pg (25.0-35.0); MEAN CORPUSCULAR HGB CONC 31.4 g/dl (31.0-37.0); MEAN PLATELET VOLUME 10.2 fl (7.0-11.0); MONO # 1.1 (0.1-0.6); MONO % 9.3 % (1.0-6.0); PLATELET COUNT 211 [, 10^3/uL] (120.0-450.0); RED CELL DISTRIBUTION WIDTH 15.7 % (11.5-14.5); WHITE BLOOD COUNT 11.4 [, 10^3/ul] (4.5-11.0)
[2017-02-26] MEDS: Multivitamin With Minerals Tab PO SCH (10:07)
--- NOTE | 2017-02-26 19:26 | CP.PCM.PN ---
Addendum entered and electronically signed by Porsha Rodríguez DO 02/27/17 06:58: Plan: one time ativan IV given for anxiety Original Note: <Porsha Rodríguez - Last Filed: 02/27/17 06:55> Subjective - Date & Time of Evaluation Date of Evaluation: 02/26/17 Time of Evaluation: 08:35 - Subjective Subjective: Pt seen and evaluated at bedside. Pt is reporting having a panic attack with SOB complaint, otherwise no pain. Afebrile overnight. Objective - Vital Signs/Intake and Output Vital Signs (last 24 hours): Temp Pulse Resp BP Pulse Ox 97.9 F 100 H 20 109/65 99 02/26/17 15:56 02/26/17 15:56 02/26/17 15:56 02/26/17 15:56 02/26/17 15:56 Intake and Output: 02/26/17 02/27/17 18:59 06:59 Intake Total 110 Output Total 600 Balance -490 - Medications Medications: Current Medications Acetaminophen (Tylenol 325mg Tab) 650 mg PO Q6H PRN PRN Reason: Pain, moderate (4-7) Last Admin: 02/26/17 09:40 Dose: 650 mg Albuterol Sulfate (Albuterol 0.042% Inhal Hanane (1.25mg/3ml) Ud) 1.25 mg IH Q2H PRN PRN Reason: Shortness of Breath Albuterol/Ipratropium (Duoneb 3 Mg/0.5 Mg (3 Ml) Ud) 3 ml IH [id number] [facility] Last Admin: 02/26/17 17:46 Dose: 3 ml Arformoterol Tartrate (Brovana) 15 mcg IH [id number] [facility] Last Admin: 02/26/17 07:06 Dose: 15 mcg Ascorbic Acid (Vitamin C 500 Mg Tab) 500 mg PO DAILY [facility] Last Admin: 02/26/17 10:06 Dose: 500 mg Aspirin (Ecotrin) 81 mg PO DAILY [facility] Last Admin: 02/26/17 10:06 Dose: 81 mg Benztropine Mesylate (Cogentin) 0.5 mg PO BID [facility] Last Admin: 02/26/17 17:26 Dose: 0.5 mg Budesonide (Pulmicort Respules) 0.5 mg IH [id number] [facility] Last Admin: 02/26/17 07:07 Dose: 0.5 mg Cyanocobalamin (Vitamin B12 1000 Mcg Tab) 1,000 mcg PO DAILY [facility] Last Admin: 02/26/17 10:06 Dose: 1,000 mcg Docusate Sodium (Colace) 100 mg PO DAILY [facility] Last Admin: 02/26/17 10:07 Dose: 100 mg Doxycycline Hyclate (Doryx) 100 mg PO Q12 [facility] PRN Reason: Protocol Last Admin: 02/26/17 10:06 Dose: 100 mg Heparin Sodium (Porcine) (Heparin) 5,000 units SC Q8H [facility] PRN Reason: Protocol Last Admin: 02/26/17 17:26 Dose: 5,000 units Lorazepam (Ativan) 0.5 mg PO TID [facility] PRN Reason: Protocol Last Admin: 02/26/17 15:00 Dose: 0.5 mg Metoprolol Tartrate (Lopressor) 25 mg PO BID [facility] Last Admin: 02/22/17 09:48 Dose: 25 mg Mirtazapine (Remeron) 15 mg PO HS PRN PRN Reason: Insomnia Last Admin: 02/22/17 22:54 Dose: 15 mg Multivitamins/Minerals (Therapeutic-M Tab) 1 tab PO DAILY [facility] Last Admin: 02/26/17 10:07 Dose: 1 tab Nicotine (Nicoderm Cq) 1 patch TD DAILY [facility] Last Admin: 02/26/17 10:06 Dose: 1 patch Olanzapine (Zyprexa Zydis) 5 mg PO AMHS [facility] PRN Reason: Protocol Last Admin: 02/26/17 10:06 Dose: 5 mg Pantoprazole Sodium (Protonix Ec Tab) 40 mg PO 0630 [facility] Last Admin: 02/26/17 06:14 Dose: Not Given Prednisone (Prednisone Tab) 20 mg PO DAILY [facility] Valproate Sodium (Depakene) 500 mg PO DAILY [facility] Last Admin: 02/26/17 10:05 Dose: 500 mg Valproate Sodium (Depakene) 750 mg PO HS [facility] Zinc Sulfate (Zinc Sulfate 220 Mg Cap) 220 mg PO DAILY [facility] Last Admin: 02/26/17 10:07 Dose: 220 mg Ziprasidone (Geodon Inj) 10 mg IM Q8 PRN; Protocol PRN Reason: Agitation Last Admin: 02/26/17 08:21 Dose: 10 mg - Labs Labs: 02/26/17 09:06 02/26/17 09:06 APTT 23.8 Seconds (23.7-30.8) 02/22/17 07:20 - Additional Findings Additional findings: - Constitutional Appears: Non-toxic, Acute Distress - Head Exam Head Exam: ATRAUMATIC, NORMOCEPHALIC - Eye Exam Eye Exam: EOMI, Normal appearance, PERRL Pupil Exam: NORMAL ACCOMODATION, PERRL - ENT Exam ENT Exam: Mucous Membranes Dry. dentures in place - Neck Exam Neck Exam: Normal Inspection. absent: Tenderness - Respiratory Exam Respiratory Exam: Clear to Ausculation Bilateral, normal breathing pattern - Cardiovascular Exam Cardiovascular Exam: murmur, +S1, +S2. - GI/Abdominal Exam GI & Abdominal Exam: Soft, Normal Bowel Sounds. absent: Tenderness - Extremities Exam Extremities Exam: Tenderness (left hand fifth digit erythematous), multiple ecchymosis from IV access attempts, Pedal Edema - Skin Skin Exam: Dry, Warm. Assessment and Plan - Assessment and Plan (Free Text) Plan: 66 y/o M who presents with SOB, altered mental status, urinary tract infection. SOB: * Improving * CXR-no interval pathology, chronic pleural-parenchymal changes- biapica prominence, concomitant upper lobe predominant ephysematous changes. * ABG showed: pH-7.46, CO2 40.8, HCO3-39.1, O2 138.0 * Continue Duonebs q4h, Albuterol 1.25 mg Q2h prn for shortness of breath, Brovana 15 mcg IH q12h, Pulmicort 0.5 mg IH q12h * prednisone 20mg * continue to monitor AMS: * Urine culture positive for gram positive cocci * currently on doxycycline * repeat urine culture negative * afebrile with mild leukocytosis, likely due to steroids * head CT showed chronic frontal encephalomalacia, old lacunar infarct, age related atrophy [see full report] * psychiatry consulted, help appreciated * Continue Cogentin 0.5 mg po bid * Continue Depakene 500 mg po amhs * Continue Olanzepine 5 mg po amhs * Continue Remeron 15 mg po hs prn * Continue Lorazepam 0.5 mg po tid * Ativan and Geodone PRN agitation * elisa vest and 1:1 sitter * valproic acid UTI * Urine culture positive for gram positive cocci * repeat culture negative for growth * currently on doxycycline * afebrile w/ mild leukocytosis Hypoglycemia: 68 this AM fingersticks q6h ordered HTN: * BP wnl, Metoprolol 25 mg po bid Coronary Artery Disease: * Aspirin 81 mg po qd - home med Prophylactic Measures: * GI: Protonix 40 mg po qd * DVT: SCDs, heparin 5000 units sc q8h * Zinc, cobalamin, ascorbic acid, multivitamins * Colace 100 mg po qd for constipation Assessment and plan discussed with attending physician <Marco Antonio Chauhan MD - Last Filed: 03/06/17 07:21> Objective - Vital Signs/Intake and Output Vital Signs (last 24 hours): Temp Pulse Resp BP Pulse Ox 97.9 F 89 22 142/96 H 96 03/01/17 16:00 03/01/17 16:00 03/01/17 16:00 03/01/17 16:00 03/01/17 16:00 - Labs Labs: 03/01/17 06:30 03/01/17 06:30 APTT 23.8 Seconds (23.7-30.8) 02/22/17 07:20 Attending/Attestation - Attestation I have personally seen and examined this patient.: Yes I have fully participated in the care of the patient.: Yes I have reviewed all pertinent clinical information, including history, physical exam and plan: Yes Notes (Text): 03/06/17 07:20 Patient was seen and examined with medical assembly .Agreed with resident assessment and plan. 66 M with PMH of COPD, anxiety disorder was readmitted with COPD exacerbation, now has delirium, COPD is improved on oral prednisone but very anxious and has intermittent hallucination. He is on 1.1.Psychiatry is following, likely need to go Psychiatry once off 1.1. Prognosis is guarded.
--- NOTE | 2017-02-26 20:04 | CON ---
DATE: 02/26/2017 HISTORY OF PRESENT ILLNESS: This is a 66-year-old male who was recently discharged from the hospital and came back. He was here with COPD exacerbation, went home and came back with increased shortness of breath and altered mental status. I was called to evaluate the patient. PAST MEDICAL HISTORY: COPD, coronary artery disease, hypertension, bipolar, anxiety and depression. PAST SURGICAL HISTORY: Coronary artery stent placement. ALLERGIES: No known drug allergies. SOCIAL HISTORY: He does not smoke or drink. PHYSICAL EXAMINATION: HEENT: Normocephalic, atraumatic. NECK: Supple. NEUROLOGIC: Awake, oriented to self. Cranial nerves II-XII were tested. Pupils reactive. EOM inta ct. Visual paula full. No facial asymmetry. Tongue midline. Motor examination: Moves all the ex tremities equally. Tone normal. Deep tendon reflexes 1+. Both plantars are downgoing. Sensory milton ears intact. Cerebellar and gait deferred. IMPRESSION: Intermittent confusional state and bipolar disorder, chronic obstructive pulmonary disea se exacerbation, hypertension, coronary artery disease. PLAN: Continue present management. We will follow up. Jaylan Dillon MD cc: [id number] TT: 02/26/2017 20:03:28 Confirmation # [id number] Dictation # [id number] rola
[2017-02-27] MEDS: Albuterol-Ipratrop 3 mg / 0.5 (3 ml) UD IH SCH ×7 (00:31→23:44)
[2017-02-27] MEDS: OLANZapine 5 mg Disintegrating Tab PO SCH ×3 (00:39→22:37)
[2017-02-27 06:37] LABS: ADD MANUAL DIFF? NO
[2017-02-27] MEDS: Pantoprazole 40 mg EC Tab PO SCH (06:55)
[2017-02-27] MEDS: Arformoterol 15 mcg/2 ml Inh Sol IH SCH ×2 (07:09→19:38)
[2017-02-27] MEDS: Budesonide 0.5 mg/2 ml Inhal Susp UD IH SCH ×2 (07:09→19:38)
[2017-02-27 07:12] LABS: ALKALINE PHOSPHATASE 45 U/L (38-133); ALT/SGPT 29 U/L (7-56); AST/SGOT 15 U/L (15-59); BILIRUBIN,TOTAL 0.4 mg/dL (0.2-1.3); BLOOD UREA NITROGEN 15 mg/dL (7-21); CARBON DIOXIDE 38 mmol/L (21-33); CHLORIDE 95 mmol/L (98-107); GFR AFRICAN-AMERICAN > 60; GLUCOSE,RANDOM 88 mg/dL (70-110); POTASSIUM 4.2 mmol/L (3.6-5.0); SODIUM 139 mmol/L (132-148); TOTAL PROTEIN 5.7 g/dL (5.8-8.3)
[2017-02-27 07:42] LABS: BASO # 0.02 [, K/mm3] (0.0-2.0); BASO % 0.2 % (0.0-3.0); EOS # 0.9 (0.0-0.7); EOS % 9.4 % (1.5-5.0); GRAN # 5.43 (1.4-6.5); GRAN % 55.6 % (50.0-68.0); HEMATOCRIT 36.1 % (42.0-52.0); LYMPH # 2.4 (1.2-3.4); LYMPH % 24.1 % (22.0-35.0); MEAN CELL VOLUME 101.4 fL (80.0-105.0); MEAN CORPUSCULAR HEMOGLOBIN 31.2 pg (25.0-35.0); MEAN CORPUSCULAR HGB CONC 30.7 g/dl (31.0-37.0); MEAN PLATELET VOLUME 10.1 fl (7.0-11.0); MONO # 1.1 (0.1-0.6); MONO % 10.7 % (1.0-6.0); PLATELET COUNT 199 [, 10^3/uL] (120.0-450.0); RED CELL DISTRIBUTION WIDTH 15.7 % (11.5-14.5); WHITE BLOOD COUNT 9.8 [, 10^3/ul] (4.5-11.0)
--- NOTE | 2017-02-27 08:47 | CON ---
DATE: 02/26/2017 The patient is a 66-year-old male with a history of antisocial personality disorder, bipola r disorder, history of admissions to psychiatric inpatient unit, who was being ____ by psychiatry on the medical floor for symptoms of delirium with behavioral disturbance. I met with the patient at bedside, and I reviewed recent nursing notes and staff notes, and though th e patient has had bouts of confusion and restlessness with yelling and swearing throughout the past 2 4 hours, he does appear to be quite improved this morning in terms of orientation and self- control, though still remains irritable. His focus and impulse control are also improved, and responses are m ore relevant and consistent with my questioning. The patient reports that he feels better, and indicates that he slept very well last night. He indic ates he denies having any hallucinations and does not appear to be responding to internal stimuli. A t times, the patient can be inconsistent, indicates that he is getting frustrated with his continued hospitalization, and that he "wants to bust out and hurt someone." Nonetheless, he denies this a few minutes later and indicates that he has been frustrated, and he does not like feeling as though he i s "locked up." The patient denied suicidal thoughts and says he wants to live, and reports that this has improved si nce yesterday. Regarding the psychiatric unit, he indicates that he would like to be transferred the re. However, when asked why he wants to be transferred there, which is what he wants help with, he i ndicates that he wants to go to a unit that has more freedom than the medical floor. The patient fol lows this up by a few minutes later saying that he just wants to be discharged so he can actually "li ve like a human being, eat and watch TV like a human being." Although the patient is still improved, his thought process can be a little inconsistent, scattered, and statements can be contradictory. H e still remains unpredictable with poor insight and judgment though improving since yesterday. VITAL SIGNS AND LABORATORY: Reviewed. RELEVANT PSYCHIATRIC MEDICATIONS: Include Ativan 0.5 mg p.o. t.i.d., Remeron 15 mg at bedtime, Zypre xa Zydis 5 mg a.m. and at bedtime, depakene 500 mg a.m. and at bedtime, and Geodon 10 mg IM q. 8 p.r. n. Please note that Depakote level on 02/25/2017 is ____. IMPRESSION: This patient has improving delirium with behavioral disturbance in the background of bip olar disorder, antisocial personality disorder and alcohol use disorder. RECOMMENDATIONS: We will continue with current medications and increase Depakote dose to improve imp ulse control, as well as mood lability. Please use appearance as necessary for the patient's agitate d and confused behavior. Please note that there are no psychiatric medications that can clear his delirium faster, and deliri um may take weeks to improve after the initial insult has been resolved. Psychiatry will continue to manage the behavioral manifestations of his delirium at this time, which appeared to be at least imp roving this morning. Mari Stoll MD cc: [id number] TT: 02/26/2017 10:24:57 Confirmation # [id number] Dictation # [id number] elinor
[2017-02-27] MEDS ORDERED: Albuterol-Ipratrop 3 mg / 0.5 (3 ml) UD IH STA ×2 (11:23→12:47)
[2017-02-27] MEDS: Multivitamin With Minerals Tab PO SCH (11:40)
--- NOTE | 2017-02-27 11:48 | CP.PCM.PN ---
<Jairo Sanz - Last Filed: 02/27/17 11:44> Subjective - Date & Time of Evaluation Date of Evaluation: 02/27/17 Time of Evaluation: 07:35 - Subjective Subjective: Medicine Progress note. Dr. Avalos Pt seen and examined at bedside. No acute events overnight. Patient states that he slept well overnight and has been breathing much better. Denies having any CP. SOB improved. He states that he would like to go home today. Also c/o left 5th digit and left hand pain, states that the pain started after he fell on his hand a few days ago. Objective - Vital Signs/Intake and Output Vital Signs (last 24 hours): Temp Pulse Resp BP Pulse Ox 98.3 F 84 19 109/64 95 02/27/17 07:30 02/27/17 07:30 02/27/17 07:30 02/27/17 07:30 02/27/17 07:30 Intake and Output: 02/27/17 02/27/17 06:59 18:59 Intake Total 720 Output Total 450 Balance 270 - Medications Medications: Current Medications Acetaminophen (Tylenol 325mg Tab) 650 mg PO Q6H PRN PRN Reason: Pain, moderate (4-7) Last Admin: 02/27/17 08:22 Dose: 650 mg Albuterol Sulfate (Albuterol 0.042% Inhal Hanane (1.25mg/3ml) Ud) 1.25 mg IH Q2H PRN PRN Reason: Shortness of Breath Albuterol/Ipratropium (Duoneb 3 Mg/0.5 Mg (3 Ml) Ud) 3 ml IH [id number] [facility] Last Admin: 02/27/17 11:27 Dose: 3 ml Arformoterol Tartrate (Brovana) 15 mcg IH [id number] [facility] Last Admin: 02/27/17 07:09 Dose: 15 mcg Ascorbic Acid (Vitamin C 500 Mg Tab) 500 mg PO DAILY [facility] Last Admin: 02/27/17 11:40 Dose: 500 mg Aspirin (Ecotrin) 81 mg PO DAILY [facility] Last Admin: 02/27/17 11:39 Dose: 81 mg Benztropine Mesylate (Cogentin) 0.5 mg PO BID [facility] Last Admin: 02/27/17 11:37 Dose: 0.5 mg Budesonide (Pulmicort Respules) 0.5 mg IH [id number] [facility] Last Admin: 02/27/17 07:09 Dose: 0.5 mg Cyanocobalamin (Vitamin B12 1000 Mcg Tab) 1,000 mcg PO DAILY [facility] Last Admin: 02/27/17 11:40 Dose: 1,000 mcg Docusate Sodium (Colace) 100 mg PO DAILY [facility] Last Admin: 02/27/17 11:38 Dose: 100 mg Doxycycline Hyclate (Doryx) 100 mg PO Q12 DEEPIKA PRN Reason: Protocol Last Admin: 02/27/17 11:38 Dose: 100 mg Heparin Sodium (Porcine) (Heparin) 5,000 units SC Q8H DEEPIKA PRN Reason: Protocol Last Admin: 02/27/17 11:39 Dose: 5,000 units Lorazepam (Ativan) 0.5 mg PO TID DEEPIKA PRN Reason: Protocol Last Admin: 02/27/17 11:00 Dose: 0.5 mg Metoprolol Tartrate (Lopressor) 25 mg PO BID [facility] Last Admin: 02/22/17 09:48 Dose: 25 mg Mirtazapine (Remeron) 15 mg PO HS PRN PRN Reason: Insomnia Last Admin: 02/27/17 00:39 Dose: 15 mg Multivitamins/Minerals (Therapeutic-M Tab) 1 tab PO DAILY [facility] Last Admin: 02/27/17 11:40 Dose: 1 tab Nicotine (Nicoderm Cq) 1 patch TD DAILY [facility] Last Admin: 02/27/17 11:39 Dose: 1 patch Olanzapine (Zyprexa Zydis) 5 mg PO AMHS DEEPIKA PRN Reason: Protocol Last Admin: 02/27/17 11:41 Dose: 5 mg Pantoprazole Sodium (Protonix Ec Tab) 40 mg PO 0630 [facility] Last Admin: 02/27/17 06:55 Dose: Not Given Prednisone (Prednisone Tab) 10 mg PO DAILY [facility] Stop: 03/01/17 10:01 Valproate Sodium (Depakene) 500 mg PO DAILY [facility] Last Admin: 02/27/17 11:38 Dose: 500 mg Valproate Sodium (Depakene) 750 mg PO HS [facility] Last Admin: 02/27/17 00:44 Dose: 750 mg Zinc Sulfate (Zinc Sulfate 220 Mg Cap) 220 mg PO DAILY [facility] Last Admin: 02/27/17 11:41 Dose: 220 mg Ziprasidone (Geodon Inj) 10 mg IM Q8 PRN; Protocol PRN Reason: Agitation Last Admin: 02/26/17 08:21 Dose: 10 mg - Labs Labs: 02/27/17 05:00 02/27/17 05:00 APTT 23.8 Seconds (23.7-30.8) 02/22/17 07:20 - Constitutional Appears: Well, No Acute Distress - Head Exam Head Exam: ATRAUMATIC, NORMAL INSPECTION, NORMOCEPHALIC - Eye Exam Eye Exam: EOMI, Normal appearance. absent: Scleral icterus - ENT Exam ENT Exam: Mucous Membranes Moist - Respiratory Exam Respiratory Exam: Clear to Ausculation Bilateral, NORMAL BREATHING PATTERN. absent: Rales, Rhonchi, Wheezes, Respiratory Distress - Cardiovascular Exam Cardiovascular Exam: absent: JVD - GI/Abdominal Exam GI & Abdominal Exam: Soft. absent: Tenderness - Extremities Exam Additional comments: left hand swelling. Left 5th digit eccymosis, tenderness to palpation. - Neurological Exam Neurological Exam: Alert, Awake - Psychiatric Exam Psychiatric exam: Anxious - Skin Skin Exam: Dry, Intact, Normal Color, Warm Assessment and Plan - Assessment and Plan (Free Text) Assessment: 66yo M with PMHx of Anxiety, COPD, CHF, Bipolar disorder, ETOH abuse, Panic d/o , HTN, Depression here with SOB. 1. COPD exacerbation secondary to ongoing panic/anxiety attacks Taper Prednisone to 10mg daily Supplemental O2 Duonebs, Brovana, Pulmicort 2. Altered Mental Status improved likely secondary to hx of psych disorders vs. sun-downing low likelyhood of secondary to UTI: Urine Cx GPC <10,000 Colonies. Repeat Cxs negative mild leukocytosis in the setting of steroid use on Doxycycline Psych following on Cogentin, Remeron, Ativan, Zyprexa, Valproate, Geodon will discontinue 1:1 today on elisa 3. Left hand pain Eccymosis to 5th digit. Hand xray - no evidence of fx Pain management: Tylenol 4. Hx of HTN continue home meds: Metoprolol 25mg PO BID 5. Hx of CAD ASA 6. PPx Protonix 40mg PO Daily Heparin 5000U SC q8h Discussed case with Dr. Robbie Sanz PGY1 <Deon Avalos - Last Filed: 02/27/17 12:46> Objective - Vital Signs/Intake and Output Vital Signs (last 24 hours): Temp Pulse Resp BP Pulse Ox 98.3 F 84 19 109/64 95 02/27/17 07:30 02/27/17 07:30 02/27/17 07:30 02/27/17 07:30 02/27/17 07:30 Intake and Output: 02/27/17 02/27/17 06:59 18:59 Intake Total 720 Output Total 450 Balance 270 - Medications Medications: Current Medications Acetaminophen (Tylenol 325mg Tab) 650 mg PO Q6H PRN PRN Reason: Pain, moderate (4-7) Last Admin: 02/27/17 08:22 Dose: 650 mg Albuterol Sulfate (Albuterol 0.042% Inhal Hanane (1.25mg/3ml) Ud) 1.25 mg IH Q2H PRN PRN Reason: Shortness of Breath Albuterol/Ipratropium (Duoneb 3 Mg/0.5 Mg (3 Ml) Ud) 3 ml IH [id number] [facility] Last Admin: 02/27/17 11:27 Dose: 3 ml Arformoterol Tartrate (Brovana) 15 mcg IH [id number] [facility] Last Admin: 02/27/17 07:09 Dose: 15 mcg Ascorbic Acid (Vitamin C 500 Mg Tab) 500 mg PO DAILY [facility] Last Admin: 02/27/17 11:40 Dose: 500 mg Aspirin (Ecotrin) 81 mg PO DAILY [facility] Last Admin: 02/27/17 11:39 Dose: 81 mg Benztropine Mesylate (Cogentin) 0.5 mg PO BID [facility] Last Admin: 02/27/17 11:37 Dose: 0.5 mg Budesonide (Pulmicort Respules) 0.5 mg IH [id number] [facility] Last Admin: 02/27/17 07:09 Dose: 0.5 mg Cyanocobalamin (Vitamin B12 1000 Mcg Tab) 1,000 mcg PO DAILY [facility] Last Admin: 02/27/17 11:40 Dose: 1,000 mcg Docusate Sodium (Colace) 100 mg PO DAILY [facility] Last Admin: 02/27/17 11:38 Dose: 100 mg Doxycycline Hyclate (Doryx) 100 mg PO Q12 [facility] PRN Reason: Protocol Last Admin: 02/27/17 11:38 Dose: 100 mg Heparin Sodium (Porcine) (Heparin) 5,000 units SC Q8H DEEPIKA PRN Reason: Protocol Last Admin: 02/27/17 11:39 Dose: 5,000 units Lorazepam (Ativan) 0.5 mg PO TID DEEPIKA PRN Reason: Protocol Last Admin: 02/27/17 11:00 Dose: 0.5 mg Metoprolol Tartrate (Lopressor) 25 mg PO BID DEEPIKA Last Admin: 02/22/17 09:48 Dose: 25 mg Mirtazapine (Remeron) 15 mg PO HS PRN PRN Reason: Insomnia Last Admin: 02/27/17 00:39 Dose: 15 mg Multivitamins/Minerals (Therapeutic-M Tab) 1 tab PO DAILY [facility] Last Admin: 02/27/17 11:40 Dose: 1 tab Nicotine (Nicoderm Cq) 1 patch TD DAILY [facility] Last Admin: 02/27/17 11:39 Dose: 1 patch Olanzapine (Zyprexa Zydis) 5 mg PO AMHS DEEPIKA PRN Reason: Protocol Last Admin: 02/27/17 11:41 Dose: 5 mg Pantoprazole Sodium (Protonix Ec Tab) 40 mg PO 0630 [facility] Last Admin: 02/27/17 06:55 Dose: Not Given Prednisone (Prednisone Tab) 10 mg PO DAILY DEEPIKA Stop: 03/01/17 10:01 Valproate Sodium (Depakene) 500 mg PO DAILY [facility] Last Admin: 02/27/17 11:38 Dose: 500 mg Valproate Sodium (Depakene) 750 mg PO HS [facility] Last Admin: 02/27/17 00:44 Dose: 750 mg Zinc Sulfate (Zinc Sulfate 220 Mg Cap) 220 mg PO DAILY [facility] Last Admin: 02/27/17 11:41 Dose: 220 mg Ziprasidone (Geodon Inj) 10 mg IM Q8 PRN; Protocol PRN Reason: Agitation Last Admin: 02/26/17 08:21 Dose: 10 mg - Labs Labs: 02/27/17 05:00 02/27/17 05:00 APTT 23.8 Seconds (23.7-30.8) 02/22/17 07:20 Attending/Attestation - Attestation I have personally seen and examined this patient.: Yes I have fully participated in the care of the patient.: Yes I have reviewed all pertinent clinical information, including history, physical exam and plan: Yes Notes (Text): 02/27/17 12:39 66 year old male with past medical history of COPD, anxiety, depression, PTSD who presented with panic attack and shortness of breath. He was recently discharged last week but returned the following day with a panic attack. This morning he is sitting up in bed. He denies any shortness of breath and is not currently wheezing. Will continue to taper his steroids. He is on duonebs, brovana, pulmicort and doxycycline. He is on ativan, remeron, zyprexa and depakene. He is being followed by psychiatry. He is not confused but easily agitated. He is no longer actively hallucinating; can d/c 1:1 as per psychiatry and monitor if elisa can also be discontinued. Case was discussed with case making machine operator and psychiatry for d/c planning ?AVA/NH. Deon Avalos MD Hospitalist.
[2017-02-27] MEDS: Albuterol 0.042% Inhal Sol (1.25 mg/3 mL) UD IH PRN (13:16)
--- NOTE | 2017-02-27 17:27 | PN ---
DATE: 02/27/2017 CHIEF COMPLAINT: Follow up for change in mental status. SUBJECTIVE: The patient seen and examined at bedside. No acute events overnight. The patient state d he slept well. His breathing is much better. He does not have any heavy breathing today. He says he wants more medication for his anxiety. Psychiatry is on board. His prednisone is being tapered f or his underlying COPD exacerbation. PAST MEDICAL HISTORY: History of anxiety, COPD, CHF, bipolar disorder, ETOH abuse, panic disorder, h ypertension, depression. SOCIAL HISTORY: No illicit drug use, smoking, or ETOH abuse. ALLERGIES: No known drug allergies. FAMILY HISTORY: Noncontributory. MEDICATIONS: Reviewed via nursing reconciliation sheet. REVIEW OF SYSTEMS: A 14-point review of systems is negative except in the HPI. PHYSICAL EXAMINATION: VITAL SIGNS: Temperature of 97.4, pulse rate of 98, blood pressure 109/69, respiratory rate of 20, o xygen 96% on room air. GENERAL: The patient is sitting up in bed in no acute distress. HEENT: Atraumatic, normocephalic. PERRLA. Extraocular muscles intact. NECK: Supple. No JVD. No adenopathy noted. LUNGS: Clear to auscultation. No adventitious sounds. HEART: S1, S2, normal rate and rhythm. No murmurs, rubs, or gallops. ABDOMEN: Soft, nontender, nondistended. Bowel sounds present. EXTREMITIES: No clubbing, no cyanosis. Peripheral pulses 2+ felt bilaterally. NEUROLOGIC: The patient is anxious, but in no acute distress. His speech is fluent, without any err ors. Cranial nerves II through XII are intact. Motor exam: Slight increased tone throughout. Moves all extremities equally. No pronator drift seen. Sensory exam: Light touch, pinprick, propriocepti on, vibration intact. DTRs are 2+ throughout. Coordination: [id number] intact. Gait deferred fo r now. LABORATORIES: Sodium is 139, potassium 4.2, chloride 95, carbon dioxide 38, BUN of 15, creatinine 0. 5, random glucose 88. ASSESSMENT AND PLAN: This is a 66-year-old man with history of anxiety, chronic obstructive pulmonar y disease, congestive heart failure, bipolar disorder, ETOH abuse, panic disorder, hypertension, depr ession, who presented with shortness of breath, which is likely secondary to ongoing panic and anxiet y attacks, and his prednisone is being tapered to 10 mg daily as well as has been given supplemental oxygen. His transient change in mental status is likely secondary to underlying chronic obstructive pulmonary disease exacerbation with history of sundowning with his underlying panic disorder. At thi s time, recommend: 1. Adjust his psychiatric medications in terms of anxiety and depression per psychiatry. Could cons ider gabapentin 400 mg p.o. at bedtime and coenzyme Q10 400 mg p.o. daily for his underlying anxiety disorder. 2. Continue with aspirin 81 mg p.o. daily. 3. Continue with psychiatric followup. 4. Continue B12 supplementation 1000 mg p.o. daily. 5. No further neurological workup needed at this time. Continue with current present medical manage ment, and we will sign off. Manolo Dillon MD cc: [id number] TT: 02/27/2017 17:27:10 Confirmation # [id number] Dictation # [id number] ln
--- NOTE | 2017-02-27 18:16 | PN ---
DATE: 02/27/2017 HISTORY OF PRESENT ILLNESS: Shortly, the patient is a 66-year-old male with long history o f mood disorder, possible bipolar spectrum disorder. [facility]. The patient also has a lot of medical issues. The patient is raygoza ving end-stage COPD. This patient was followed up today, presented much better to compare with last week. The patient denied being depressed. The patient denied thoughts of killing himself or others. There are no episodes of disruptive or agitated behavior. The patient reported that he is improvin g. At the same time, patient requested to be transferred to the psychiatric inpatient unit. When th is headline writer asked what is this for, the patient, "it sounds nicer." The patient does not meet the crite zeb for psychiatric inpatient unit transfer at the present moment. VITAL SIGNS: Stable. Temperature 98.3, pulse is 84, blood pressure 109/64, oxygen saturation is 95. MEDICATIONS: Reviewed. Tylenol, albuterol, Brovana, vitamin C, aspirin, Cogentin 0.5 mg twice a day , Pulmicort, vitamin B12, Colace, doxycycline, heparin, Ativan 0.5 mg 3 times a day, Remeron 15 mg at the nighttime for insomnia, multivitamins, Nicoderm, Zyprexa Zydis 5 mg twice a day, Protonix, predn isone, depakene 500 mg in the morning time and 750 mg at the nighttime and Geodon 10 mg IM q. 8 hours as needed for agitation. LABORATORY DATA: Reviewed. Seem to be within normal limits. MENTAL STATUS EXAMINATION: As this headline writer described above, the patient was pleasant and cooperative. Fair eye contact. Speech was normal rate, tone, quality, and quantity. Mood described as "okay. I feel better." Affect was constricted, mood congruent. Thought process was coherent and goal direct ed. Thought content: The patient denied visual, auditory, tactile hallucinations. Denied paranoid ideations. The patient denied thoughts of harming himself or others. Denies intent or plan. Insigh t and judgment are improving. Impulses are well controlled. IMPRESSION: As per history, the patient has mood spectrum disorder at present moment. Delirium is c learing. The patient also has antisocial personality disorder, multiple medical issues. Please see medical team note for more detailed information. PLAN: The patient seems not able to function in the community. The patient has multiple readmission s within less than 24 hours. The patient will benefit from [facility]ci placement or subacute rehab because at present moment, patient is not able to go back to his family because patient's family will be not able to take care of him. Case was discussed with the nursing staff as well as medical team and nurse practitioner. Social work evaluation is recommended. This headline writer will follow up on this p atient as needed. Should you have any questions, give me a call back. Depakote level within normal limits. There are no signs of toxicity and it was 53. Please call me if you have any questions . Thank you very much for letting me participate in care of your patient. Nathaly Bergman MD cc: [id number] TT: 02/27/2017 18:15:40 Confirmation # [id number] Dictation # [id number] ln
[2017-02-28] MEDS: Albuterol-Ipratrop 3 mg / 0.5 (3 ml) UD IH SCH ×5 (04:00→21:00)
[2017-02-28] MEDS: Pantoprazole 40 mg EC Tab PO SCH (05:35)
[2017-02-28 07:28] LABS: ADD MANUAL DIFF? NO
[2017-02-28 07:31] LABS: BASO # 0.01 [, K/mm3] (0.0-2.0); BASO % 0.1 % (0.0-3.0); EOS # 0.7 (0.0-0.7); EOS % 7.6 % (1.5-5.0); GRAN # 5.49 (1.4-6.5); GRAN % 59.8 % (50.0-68.0); HEMATOCRIT 33.2 % (42.0-52.0); LYMPH # 2.1 (1.2-3.4); LYMPH % 23.1 % (22.0-35.0); MEAN CELL VOLUME 98.2 fL (80.0-105.0); MEAN CORPUSCULAR HEMOGLOBIN 31.4 pg (25.0-35.0); MEAN CORPUSCULAR HGB CONC 31.9 g/dl (31.0-37.0); MEAN PLATELET VOLUME 9.4 fl (7.0-11.0); MONO # 0.9 (0.1-0.6); MONO % 9.4 % (1.0-6.0); PLATELET COUNT 200 [, 10^3/uL] (120.0-450.0); RED CELL DISTRIBUTION WIDTH 15.5 % (11.5-14.5); WHITE BLOOD COUNT 9.2 [, 10^3/ul] (4.5-11.0)
[2017-02-28] MEDS: Arformoterol 15 mcg/2 ml Inh Sol IH SCH ×2 (07:36→21:00)
[2017-02-28] MEDS: Budesonide 0.5 mg/2 ml Inhal Susp UD IH SCH ×2 (07:36→21:00)
[2017-02-28 07:38] LABS: ALB/GLOB RATIO 1.1 (1.1-1.8); ALKALINE PHOSPHATASE 47 U/L (38-133); ALT/SGPT 30 U/L (7-56); AST/SGOT 20 U/L (15-59); BILIRUBIN,TOTAL 0.4 mg/dL (0.2-1.3); BLOOD UREA NITROGEN 12 mg/dL (7-21); CALCIUM 8.9 mg/dL (8.4-10.5); CARBON DIOXIDE 33 mmol/L (21-33); CHLORIDE 98 mmol/L (95-110); GFR AFRICAN-AMERICAN > 60; GLUCOSE,RANDOM 72 mg/dL (70-110); POTASSIUM 4.4 mmol/L (3.6-5.0); SODIUM 139 mmol/L (132-148); TOTAL PROTEIN 6.1 g/dL (5.8-8.3)
[2017-02-28] MEDS: Multivitamin With Minerals Tab PO SCH (09:30)
[2017-02-28] MEDS: OLANZapine 5 mg Disintegrating Tab PO SCH ×2 (09:31→22:44)
--- NOTE | 2017-02-28 12:54 | CP.PCM.PN ---
<Jairo Sanz - Last Filed: 02/28/17 12:45> Subjective - Date & Time of Evaluation Date of Evaluation: 02/28/17 Time of Evaluation: 07:40 - Subjective Subjective: Medicine Progress note. Dr. Avalos Pt seen and examined at bedside. No acute events overnight States that he is breathing much better today. States that he thought that he was going to have a panic attack last night, however, he did not after calming himself down. He did not work with PT yesterday because he was too tired and states that he will work with them today. He denies any new complaints. No N/V/D. No Abd pain. No F/ C. No CP. SOB improved Objective - Vital Signs/Intake and Output Vital Signs (last 24 hours): Temp Pulse Resp BP Pulse Ox 98.4 F 68 20 134/71 99 02/28/17 07:30 02/28/17 07:30 02/28/17 07:30 02/28/17 07:30 02/28/17 07:30 Intake and Output: 02/28/17 02/28/17 06:59 18:59 Intake Total 600 Output Total 300 Balance 300 - Medications Medications: Current Medications Acetaminophen (Tylenol 325mg Tab) 650 mg PO Q6H PRN PRN Reason: Pain, moderate (4-7) Last Admin: 02/28/17 11:43 Dose: 650 mg Albuterol Sulfate (Albuterol 0.042% Inhal Hanane (1.25mg/3ml) Ud) 1.25 mg IH Q2H PRN PRN Reason: Shortness of Breath Last Admin: 02/27/17 13:16 Dose: 1.25 mg Albuterol/Ipratropium (Duoneb 3 Mg/0.5 Mg (3 Ml) Ud) 3 ml [facility] [id number] [facility] Last Admin: 02/28/17 10:49 Dose: 3 ml Arformoterol Tartrate (Brovana) 15 mcg IH [id number] [facility] Last Admin: 02/28/17 07:36 Dose: 15 mcg Ascorbic Acid (Vitamin C 500 Mg Tab) 500 mg PO DAILY [facility] Last Admin: 02/28/17 09:30 Dose: 500 mg Aspirin (Ecotrin) 81 mg PO DAILY [facility] Last Admin: 02/28/17 09:29 Dose: 81 mg Benztropine Mesylate (Cogentin) 0.5 mg PO BID [facility] Last Admin: 02/28/17 09:28 Dose: 0.5 mg Budesonide (Pulmicort Respules) 0.5 mg IH [id number] [facility] Last Admin: 02/28/17 07:36 Dose: 0.5 mg Cyanocobalamin (Vitamin B12 1000 Mcg Tab) 1,000 mcg PO DAILY [facility] Last Admin: 02/28/17 09:30 Dose: 1,000 mcg Docusate Sodium (Colace) 100 mg PO DAILY [facility] Last Admin: 02/28/17 09:28 Dose: 100 mg Heparin Sodium (Porcine) (Heparin) 5,000 units SC Q8H DEEPIKA PRN Reason: Protocol Last Admin: 02/28/17 09:29 Dose: 5,000 units Lorazepam (Ativan) 0.5 mg PO TID DEEPIKA PRN Reason: Protocol Last Admin: 02/28/17 09:27 Dose: 0.5 mg Metoprolol Tartrate (Lopressor) 25 mg PO BID [facility] Last Admin: 02/22/17 09:48 Dose: 25 mg Mirtazapine (Remeron) 15 mg PO HS PRN PRN Reason: Insomnia Last Admin: 02/27/17 21:34 Dose: 15 mg Multivitamins/Minerals (Therapeutic-M Tab) 1 tab PO DAILY [facility] Last Admin: 02/28/17 09:30 Dose: 1 tab Nicotine (Nicoderm Cq) 1 patch TD DAILY [facility] Last Admin: 02/28/17 09:29 Dose: 1 patch Olanzapine (Zyprexa Zydis) 5 mg PO AMHS DEEPIKA PRN Reason: Protocol Last Admin: 02/28/17 09:31 Dose: 5 mg Pantoprazole Sodium (Protonix Ec Tab) 40 mg PO 0630 [facility] Last Admin: 02/28/17 05:35 Dose: 40 mg Prednisone (Prednisone Tab) 10 mg PO DAILY [facility] Stop: 03/01/17 10:01 Last Admin: 02/28/17 09:30 Dose: 10 mg Valproate Sodium (Depakene) 500 mg PO DAILY [facility] Last Admin: 02/28/17 09:29 Dose: 500 mg Valproate Sodium (Depakene) 750 mg PO HS [facility] Last Admin: 02/27/17 21:32 Dose: 750 mg Zinc Sulfate (Zinc Sulfate 220 Mg Cap) 220 mg PO DAILY [facility] Last Admin: 02/28/17 09:30 Dose: 220 mg Ziprasidone (Geodon Inj) 10 mg IM Q8 PRN; Protocol PRN Reason: Agitation Last Admin: 02/26/17 08:21 Dose: 10 mg - Labs Labs: 02/28/17 07:00 02/28/17 06:30 APTT 23.8 Seconds (23.7-30.8) 02/22/17 07:20 - Constitutional Appears: Well, No Acute Distress - Head Exam Head Exam: ATRAUMATIC, NORMAL INSPECTION, NORMOCEPHALIC - Eye Exam Eye Exam: EOMI, Normal appearance. absent: Scleral icterus - ENT Exam ENT Exam: Mucous Membranes Moist - Respiratory Exam Respiratory Exam: Clear to Ausculation Bilateral, NORMAL BREATHING PATTERN. absent: Wheezes - Cardiovascular Exam Cardiovascular Exam: RRR, +S1, +S2. absent: JVD - GI/Abdominal Exam GI & Abdominal Exam: Soft. absent: Distended, Firm, Guarding, Rigid, Tenderness - Extremities Exam Extremities Exam: Normal Inspection - Neurological Exam Neurological Exam: Alert, Awake, Oriented x3 - Skin Skin Exam: Dry, Intact, Normal Color, Warm Assessment and Plan - Assessment and Plan (Free Text) Assessment: 66yo M with PMHx of Anxiety, COPD, CHF, Bipolar disorder, ETOH abuse, Panic d/o , HTN, Depression here with SOB. 1. COPD exacerbation secondary to ongoing panic/anxiety attacks Prednisone to 10mg daily continue Supplemental O2 Duonebs, Brovana, Pulmicort 2. Altered Mental Status improved likely secondary to hx of psych disorders vs. sun-downing low likelihood of secondary to UTI: Urine Cx GPC <10,000 Colonies. Repeat Cxs negative mild leukocytosis in the setting of steroid use on Doxycycline Psych following on Cogentin, Remeron, Ativan, Zyprexa, Valproate, Geodon 3. Left hand pain Ecchymosis to 5th digit. Hand xray - no evidence of fx Pain management: Ibuprofen 4. Hx of HTN continue home meds: Metoprolol 25mg PO BID 5. Hx of CAD ASA 81 PO Daily 6. PPx Protonix 40mg PO Daily Heparin 5000U SC q8h Dispo: Subacute Rehab vs. LTACH Discussed case with Dr. Robbie Sanz PGY1 <Deon Avalos - Last Filed: 02/28/17 13:43> Objective - Vital Signs/Intake and Output Vital Signs (last 24 hours): Temp Pulse Resp BP Pulse Ox 98.4 F 68 20 134/71 99 02/28/17 07:30 02/28/17 07:30 02/28/17 07:30 02/28/17 07:30 02/28/17 07:30 Intake and Output: 02/28/17 02/28/17 06:59 18:59 Intake Total 600 Output Total 300 Balance 300 - Medications Medications: Current Medications Albuterol Sulfate (Albuterol 0.042% Inhal Hanane (1.25mg/3ml) Ud) 1.25 mg IH Q2H PRN PRN Reason: Shortness of Breath Last Admin: 02/27/17 13:16 Dose: 1.25 mg Albuterol/Ipratropium (Duoneb 3 Mg/0.5 Mg (3 Ml) Ud) 3 ml [facility]H [id number] [facility] Last Admin: 02/28/17 10:49 Dose: 3 ml Arformoterol Tartrate (Brovana) 15 mcg IH [id number] [facility] Last Admin: 02/28/17 07:36 Dose: 15 mcg Ascorbic Acid (Vitamin C 500 Mg Tab) 500 mg PO DAILY [facility] Last Admin: 02/28/17 09:30 Dose: 500 mg Aspirin (Ecotrin) 81 mg PO DAILY [facility] Last Admin: 02/28/17 09:29 Dose: 81 mg Benztropine Mesylate (Cogentin) 0.5 mg PO BID [facility] Last Admin: 02/28/17 09:28 Dose: 0.5 mg Budesonide (Pulmicort Respules) 0.5 mg IH [id number] [facility] Last Admin: 02/28/17 07:36 Dose: 0.5 mg Cyanocobalamin (Vitamin B12 1000 Mcg Tab) 1,000 mcg PO DAILY [facility] Last Admin: 02/28/17 09:30 Dose: 1,000 mcg Docusate Sodium (Colace) 100 mg PO DAILY [facility] Last Admin: 02/28/17 09:28 Dose: 100 mg Heparin Sodium (Porcine) (Heparin) 5,000 units SC Q8H DEEPIKA PRN Reason: Protocol Last Admin: 02/28/17 09:29 Dose: 5,000 units Ibuprofen (Motrin Tab) 400 mg PO Q8H PRN PRN Reason: Pain, moderate (4-7) Lorazepam (Ativan) 0.5 mg PO TID DEEPIKA PRN Reason: Protocol Last Admin: 02/28/17 09:27 Dose: 0.5 mg Metoprolol Tartrate (Lopressor) 25 mg PO BID DEEPIKA Last Admin: 02/22/17 09:48 Dose: 25 mg Mirtazapine (Remeron) 15 mg PO HS PRN PRN Reason: Insomnia Last Admin: 02/27/17 21:34 Dose: 15 mg Multivitamins/Minerals (Therapeutic-M Tab) 1 tab PO DAILY [facility] Last Admin: 02/28/17 09:30 Dose: 1 tab Nicotine (Nicoderm Cq) 1 patch TD DAILY [facility] Last Admin: 02/28/17 09:29 Dose: 1 patch Olanzapine (Zyprexa Zydis) 5 mg PO AMHS DEEPIKA PRN Reason: Protocol Last Admin: 02/28/17 09:31 Dose: 5 mg Pantoprazole Sodium (Protonix Ec Tab) 40 mg PO 0630 DEEPIKA Last Admin: 02/28/17 05:35 Dose: 40 mg Prednisone (Prednisone Tab) 10 mg PO DAILY [facility]EE[facility]KA Stop: 03/01/17 10:01 Last Admin: 02/28/17 09:30 Dose: 10 mg Valproate Sodium (Depakene) 500 mg PO DAILY DEE[facility]KA Last Admin: 02/28/17 09:29 Dose: 500 mg Valproate Sodium (Depakene) 750 mg PO HS [facility] Last Admin: 02/27/17 21:32 Dose: 750 mg Zinc Sulfate (Zinc Sulfate 220 Mg Cap) 220 mg PO DAILY [facility] Last Admin: 02/28/17 09:30 Dose: 220 mg Ziprasidone (Geodon Inj) 10 mg IM Q8 PRN; Protocol PRN Reason: Agitation Last Admin: 02/26/17 08:21 Dose: 10 mg - Labs Labs: 02/28/17 07:00 02/28/17 06:30 APTT 23.8 Seconds (23.7-30.8) 02/22/17 07:20 Attending/Attestation - Attestation I have personally seen and examined this patient.: Yes I have fully participated in the care of the patient.: Yes I have reviewed all pertinent clinical information, including history, physical exam and plan: Yes Notes (Text): 02/28/17 13:40 66 year old male with past medical history of COPD, anxiety, depression, PTSD who presented with panic attack and shortness of breath. He was recently discharged last week but returned the following day with a panic attack. He is doing well from pulmonary standpoint on po prednisone, duonebs, brovana, pulmicort and doxycycline. He is on ativan, remeron, zyprexa and depakene. He is being followed by psychiatry. Case was discussed with medical social worker today regarding d/c planning ?[facility]. Deon Avalos MD Hospitalist.
[2017-03-01] MEDS: Albuterol-Ipratrop 3 mg / 0.5 (3 ml) UD IH SCH ×6 (00:30→15:30)
[2017-03-01] MEDS: Albuterol 0.042% Inhal Sol (1.25 mg/3 mL) UD IH PRN ×3 (02:12→13:36)
[2017-03-01] MEDS: Pantoprazole 40 mg EC Tab PO SCH (05:33)
[2017-03-01 06:37] LABS: ADD MANUAL DIFF? NO
[2017-03-01 07:15] LABS: ALB/GLOB RATIO 1.1 (1.1-1.8); ALKALINE PHOSPHATASE 48 U/L (38-133); ALT/SGPT 32 U/L (7-56); AST/SGOT 26 U/L (15-59); BILIRUBIN,TOTAL 0.5 mg/dL (0.2-1.3); BLOOD UREA NITROGEN 11 mg/dL (7-21); CALCIUM 9.1 mg/dL (8.4-10.5); CARBON DIOXIDE 38 mmol/L (21-33); CHLORIDE 97 mmol/L (98-107); GFR AFRICAN-AMERICAN > 60; GLUCOSE,RANDOM 126 mg/dL (70-110); SODIUM 140 mmol/L (132-148); TOTAL PROTEIN 6.3 g/dL (5.8-8.3)
[2017-03-01 07:23] LABS: BASO # 0.02 [, K/mm3] (0.0-2.0); BASO % 0.1 % (0.0-3.0); EOS # 0.7 (0.0-0.7); EOS % 3.9 % (1.5-5.0); GRAN # 15.29 (1.4-6.5); HEMATOCRIT 36.1 % (42.0-52.0); LYMPH # 1.7 (1.2-3.4); MEAN PLATELET VOLUME 10.4 fl (7.0-11.0); MONO # 1.3 (0.1-0.6); PLATELET COUNT 218 [, 10^3/uL] (120.0-450.0); RED CELL DISTRIBUTION WIDTH 15.8 % (11.5-14.5); WHITE BLOOD COUNT 19.1 [, 10^3/ul] (4.5-11.0)
[2017-03-01] MEDS: Budesonide 0.5 mg/2 ml Inhal Susp UD IH SCH (07:45)
[2017-03-01] MEDS: Arformoterol 15 mcg/2 ml Inh Sol IH SCH (07:45)
[2017-03-01] MEDS: OLANZapine 5 mg Disintegrating Tab PO SCH (12:31)
[2017-03-01] MEDS: Multivitamin With Minerals Tab PO SCH (12:32)
--- NOTE | 2017-03-01 15:14 | RAD ---
HISTORY: assess infiltrates COMPARISON: CT scan 12/15/2016 TECHNIQUE: Chest PA and lateral FINDINGS: LUNGS: No active pulmonary disease. PLEURA: No significant pleural effusion identified. No pneumothorax apparent. CARDIOVASCULAR: Normal. OSSEOUS STRUCTURES: There are 2 contiguous severe compression deformities in the mid thoracic spine. One of these is new and was not present on the previous exam VISUALIZED UPPER ABDOMEN: Normal. OTHER FINDINGS: None. IMPRESSION: Severe compression fractures mid thoracic spine. The lungs are clear
--- NOTE | 2017-03-01 16:06 | PN ---
DATE: 03/01/2017 Shortly, the patient is a 66-year-old male with history of mood disorder, antisocial person ality disorder, possible bipolar disorder. The patient is familiar to this quality analyst/technical writer from multiple admi ssions to the psychiatric inpatient unit as well as a real estate listing consultant on the medical side. The patient wa s followed up by psychiatry team for evaluation of anxiety symptoms as well as episodes of confusion and delirium stage. The patient was followed up today. The patient presented to be alert and oriented. The patient comp lained of anxiety. At the same time, the patient appears to be much calmer, pleasant and cooperative . The patient reported that at times he feels very anxious and unable to breathe. The patient said that he had a good night's sleep, denied being depressed, denied thoughts of harming himself or other s. Denied intent or plan. Denied any hallucinations. As per patient, his family is working for [employer] for him and the social service manager is helping his family find a place for him. Of note, patient wa s evicted from the house at [place]. VITAL SIGNS: This quality analyst/technical writer reviewed. The patient's vital signs seem to be stable. Temperature 98.2, pulse 90, 150/84, respirations 20, oxygen saturation is 99. MEDICATIONS: Reviewed. This quality analyst/technical writer will increase the dose of Ativan to 1 mg three times a day. The patient is on Remeron 15 mg at the nighttime for insomnia. The patient also is on Zyprexa Zydis 5 m g twice a day. The patient is on ____ 750 mg at the nighttime and 500 mg in the morning time. At th e nighttime, the patient got Geodon IM. MENTAL STATUS EXAMINATION: As the moment of interview, the patient presented to be alert and oriente d, pleasant, cooperative. The patient reported feeling anxious. Mood described, "I feel fine." Aff ect was constricted, irritable, but this is patient's baseline. Thought process was coherent and goa l directed. Thought content: The patient denied visual, auditory, tactile hallucinations. Denied p aranoid ideation. The patient does not present to be psychotic. Insight and judgment are improving. Impulses at times unpredictable. IMPRESSION: The patient most likely had mood disorder and anxiety disorder due to general medical co ndition. Delirium is improving. The patient has history of bipolar disorder, antisocial personality disorder. The patient also might have mood disorder and anxiety disorder due to general medical con dition. PLAN: Continue current management. Ativan was increased to 1 mg three times a day. Continue Remero n 15 mg. Continue ____ as of now. Continue Zyprexa 5 mg twice a day. This quality analyst/technical writer will follow up on this patient as needed. Thank you very much for letting me participate in care of your patient. Should you have any question s, give me a call back. Nathaly Bergman MD cc: [id number] TT: 03/01/2017 14:27:49 Confirmation # [id number] Dictation # [id number] mn 03/01/2017 15:04:55
--- NOTE | 2017-03-01 16:31 | CP.PCM.DIS ---
<Jairo Sanz - Last Filed: 03/02/17 16:11> Provider - Provider Date of Admission: 02/22/17 00:47 Attending physician: Deon Avalos MD Primary care physician: NO PRIMARY CARE PROVIDER Consults: Psych: Pacheco Neuro: Nimco Dillon Time Spent in preparation of Discharge (in minutes): 45 Hospital Course - Lab Results Lab Results: Micro Results 02/22/17 13:20 Urine,Clean Catch Urine Culture - Final No Growth (<1,000 CFU/ML) Most Recent Lab Values WBC 19.1 10^3/ul (4.5-11.0) H D 03/01/17 06:30 RBC 3.61 10^6/uL (3.5-6.1) 03/01/17 06:30 Hgb 11.2 gm/dL (14.0-18.0) L 03/01/17 06:30 Hct 36.1 % (42.0-52.0) L 03/01/17 06:30 MCV 100.0 fL (80.0-105.0) 03/01/17 06:30 MCH 31.0 pg (25.0-35.0) 03/01/17 06:30 MCHC 31.0 g/dl (31.0-37.0) 03/01/17 06:30 RDW 15.8 % (11.5-14.5) H 03/01/17 06:30 Plt Count 218 10^3/uL (120.0-450.0) 03/01/17 06:30 MPV 10.4 fl (7.0-11.0) 03/01/17 06:30 Gran % 80.0 % (50.0-68.0) H 03/01/17 06:30 Lymph % (Auto) 9.0 % (22.0-35.0) L 03/01/17 06:30 Karnes % (Auto) 7.0 % (1.0-6.0) H 03/01/17 06:30 Eos % (Auto) 3.9 % (1.5-5.0) 03/01/17 06:30 Baso % (Auto) 0.1 % (0.0-3.0) 03/01/17 06:30 Gran # 15.29 (1.4-6.5) H 03/01/17 06:30 Lymph # 1.7 (1.2-3.4) 03/01/17 06:30 Karnes # 1.3 (0.1-0.6) H 03/01/17 06:30 Eos # 0.7 (0.0-0.7) 03/01/17 06:30 Baso # 0.02 K/mm3 (0.0-2.0) 03/01/17 06:30 APTT 23.8 Seconds (23.7-30.8) 02/22/17 07:20 pCO2 55 mm/Hg (35-45) H 02/23/17 09:10 pO2 138.0 mm/Hg (80-100) H 02/23/17 09:10 HCO3 39.1 mmol/L (21-28) H 02/23/17 09:10 ABG pH 7.46 (7.35-7.45) H 02/23/17 09:10 ABG Total CO2 40.8 mmol.L (22-28) H 02/23/17 09:10 ABG O2 Saturation 99.6 % (95-98) H 02/23/17 09:10 ABG O2 Content 15.9 ML/dl (15-23) 02/23/17 09:10 ABG Base Excess 13.2 mmol/L (-2.0-3.0) H 02/23/17 09:10 ABG Hemoglobin 11.4 g/dL (11.7-17.4) L 02/23/17 09:10 ABG Carboxyhemoglobin 1.5 % (0.5-1.5) 02/23/17 09:10 POC ABG HHb (Measured) 0.4 % (0-5) 02/23/17 09:10 ABG Methemoglobin 0.8 % (0.0-3.0) 02/23/17 09:10 ABG O2 Capacity 16.0 mL/dl (16-24) 02/23/17 09:10 Hgb O2 Saturation 97.3 % (95.0-98.0) 02/23/17 09:10 FiO2 36.0 % 02/23/17 09:10 Sodium 140 mmol/L (132-148) 03/01/17 06:30 Potassium 4.0 mmol/L (3.6-5.0) 03/01/17 06:30 Chloride 97 mmol/L (98-107) L 03/01/17 06:30 Carbon Dioxide 38 mmol/L (21-33) H 03/01/17 06:30 Anion Gap 9 (10-20) L 03/01/17 06:30 BUN 11 mg/dL (7-21) 03/01/17 06:30 Creatinine 0.5 mg/dL (0.5-1.4) 03/01/17 06:30 Est GFR ( Amer) > 60 03/01/17 06:30 Est GFR (Non-Af Amer) > 60 03/01/17 06:30 Random Glucose 126 mg/dL (70-110) H 03/01/17 06:30 Calcium 9.1 mg/dL (8.4-10.5) 03/01/17 06:30 Phosphorus 4.5 mg/dL (2.5-4.5) 02/22/17 08:00 Magnesium 2.6 mg/dL (1.7-2.2) H 02/25/17 07:57 Total Bilirubin 0.5 mg/dL (0.2-1.3) 03/01/17 06:30 AST 26 U/L (15-59) 03/01/17 06:30 ALT 32 U/L (7-56) 03/01/17 06:30 Alkaline Phosphatase 48 U/L (38-133) 03/01/17 06:30 Lactate Dehydrogenase 284 U/L (333-699) L 02/21/17 23:55 Total Creatine Kinase < 20 U/L (35-230) L 02/21/17 23:55 Troponin I < 0.01 ng/mL 02/21/17 23:55 NT-Pro-B Natriuret Pep 240 pg/mL (0-450) 02/21/17 23:55 Total Protein 6.3 g/dL (5.8-8.3) 03/01/17 06:30 Albumin 3.3 g/dL (3.0-4.8) 03/01/17 06:30 Globulin 2.9 gm/dL 03/01/17 06:30 Albumin/Globulin Ratio 1.1 (1.1-1.8) 03/01/17 06:30 Urine Color Yellow (YELLOW) 02/22/17 13:15 Urine Appearance Clear (CLEAR) 02/22/17 13:15 Urine pH 8.0 (4.7-8.0) 02/22/17 13:15 Ur Specific Houstonia 1.010 (1.005-1.035) 02/22/17 13:15 Urine Protein Negative mg/dL (<30 mg/dL) 02/22/17 13:15 Urine Glucose (UA) Negative mg/dL (NEGATIVE) 02/22/17 13:15 Urine Ketones Negative mg/dL (NEGATIVE) 02/22/17 13:15 Urine Blood Negative (NEGATIVE) 02/22/17 13:15 Urine Nitrate Negative (NEGATIVE) 02/22/17 13:15 Urine Bilirubin Negative (NEGATIVE) 02/22/17 13:15 Urine Urobilinogen 0.2 E.U./dL (<1 E.U./dL) 02/22/17 13:15 Ur Leukocyte Esterase Negative Fawad/uL (NEGATIVE) 02/22/17 13:15 Valproic Acid 53 ug/mL (50.0-100.0) 02/25/17 10:47 - Hospital Course Hospital Course: Upon Admission: 66yo M very well known to our service, with PMHx of COPD, CAD, HTN, Bipolar Disorder here for evaluation of shortness of breath. Patient states that he had a panic attack and then started to get SOB. Patient has had multiple prior admissions with similar complaints. During this admission, patient needed to be restrained and placed on 1:1 initially due to combativeness and altered mental status. Patient was treated with IV steroids, Urine culture showed gram positive cocci growth, patient was placed on Doxycycline. Psych consult and Neuro consult was obtained. Psych adjusted the dosages of his medication regimen. Neuro stated that his Altered mental status was secondary to psych history and no neurological deficits were observed. Patient's Panic attacks, anxiety and shortness of breath improved over the course of the stay. Patient requested to be discharged home to live with his brother or sister, however, they were contacted and refused to have him since they are ill themselves and are unable to care for the patient. They would prefer to have the patient moved to rehab facility and then a custodial. A chest x-ray was obtained due to transient leukocytosis and an incidental finding of thoracic spine compression fracture, one new and not on previous exams. Patient denies any complaints of pain. This is likely non-traumatic as there is no history of falls or trauma. Patient was advised to continue physical therapy at the Rehab facility. Plan was discussed in detail with the patient, who accepts and agrees. Patient was transferred via ambulance to [facility]. 1. COPD exacerbation; secondary to panic attacks 2. Anxiety 3. Hx of HTN 4. T-spine compression fx; continue Physical Therapy 5. Hx of CAD 6. Hx of Bipolar Disorder Upon Discharge: Patient is cleared for discharge to Rehab as per Dr. Avalos 1. Patient to go to [facility] by [facility]. 2. Continue Physical Therapy for new compression fracture of thoracic spine 3. Recommend out-patient Dexa scan 4. Start taking OTC Calcium supplements daily 5. Resume home meds 6. Return to the ER with any concerning symptoms Discharge Exam - Head Exam Head Exam: ATRAUMATIC, NORMAL INSPECTION, NORMOCEPHALIC - Eye Exam Eye Exam: EOMI, Normal appearance. absent: Scleral icterus - ENT Exam ENT Exam: Mucous Membranes Moist - Respiratory Exam Respiratory Exam: Clear to PA & Lateral, UNREMARKABLE. absent: Decreased Breath Sounds, Rales, Rhonchi, Wheezes, Respiratory Distress - Cardiovascular Exam Cardiovascular Exam: RRR, +S1, +S2. absent: JVD - GI/Abdominal Exam GI & Abdominal Exam: Soft. absent: Distended, Guarding, Tenderness - Extremities Exam Extremities exam: normal inspection - Neurological Exam Neurological exam: Alert, Oriented x3 - Psychiatric Exam Psychiatric exam: Normal Affect, Normal Mood - Skin Skin Exam: Dry, Intact, Normal Color, Warm Discharge Plan - Follow Up Plan Condition: STABLE Disposition: TRANSF TO SNF Instructions: COPD (Chronic Obstructive Pulmonary Disease) (DC), Anxiety (DC) Additional Instructions: Patient is cleared for discharge to Rehab as per Dr. Avalos 1. Patient to go to [facility] by [facility]. 2. Continue Physical Therapy for new compression Fracture of thoracic spine 3. Recommend out-patient Dexa scan 4. Start taking OTC Calcium supplements daily 5. Resume home meds 6. Return to the ER with any concerning symptoms Referrals: PCP,NO [Primary Care Provider] - <Deon Avalos - Last Filed: 03/02/17 16:44> Provider - Provider Date of Admission: 02/22/17 00:47 Attending physician: Deon Avalos MD Primary care physician: NO PRIMARY CARE PROVIDER Hospital Course - Lab Results Lab Results: Micro Results 02/22/17 13:20 Urine,Clean Catch Urine Culture - Final No Growth (<1,000 CFU/ML) Most Recent Lab Values WBC 19.1 10^3/ul (4.5-11.0) H D 03/01/17 06:30 RBC 3.61 10^6/uL (3.5-6.1) 03/01/17 06:30 Hgb 11.2 gm/dL (14.0-18.0) L 03/01/17 06:30 Hct 36.1 % (42.0-52.0) L 03/01/17 06:30 MCV 100.0 fL (80.0-105.0) 03/01/17 06:30 MCH 31.0 pg (25.0-35.0) 03/01/17 06:30 MCHC 31.0 g/dl (31.0-37.0) 03/01/17 06:30 RDW 15.8 % (11.5-14.5) H 03/01/17 06:30 Plt Count 218 10^3/uL (120.0-450.0) 03/01/17 06:30 MPV 10.4 fl (7.0-11.0) 03/01/17 06:30 Gran % 80.0 % (50.0-68.0) H 03/01/17 06:30 Lymph % (Auto) 9.0 % (22.0-35.0) L 03/01/17 06:30 Karnes % (Auto) 7.0 % (1.0-6.0) H 03/01/17 06:30 Eos % (Auto) 3.9 % (1.5-5.0) 03/01/17 06:30 Baso % (Auto) 0.1 % (0.0-3.0) 03/01/17 06:30 Gran # 15.29 (1.4-6.5) H 03/01/17 06:30 Lymph # 1.7 (1.2-3.4) 03/01/17 06:30 Karnes # 1.3 (0.1-0.6) H 03/01/17 06:30 Eos # 0.7 (0.0-0.7) 03/01/17 06:30 Baso # 0.02 K/mm3 (0.0-2.0) 03/01/17 06:30 APTT 23.8 Seconds (23.7-30.8) 02/22/17 07:20 pCO2 55 mm/Hg (35-45) H 02/23/17 09:10 pO2 138.0 mm/Hg (80-100) H 02/23/17 09:10 HCO3 39.1 mmol/L (21-28) H 02/23/17 09:10 ABG pH 7.46 (7.35-7.45) H 02/23/17 09:10 ABG Total CO2 40.8 mmol.L (22-28) H 02/23/17 09:10 ABG O2 Saturation 99.6 % (95-98) H 02/23/17 09:10 ABG O2 Content 15.9 ML/dl (15-23) 02/23/17 09:10 ABG Base Excess 13.2 mmol/L (-2.0-3.0) H 02/23/17 09:10 ABG Hemoglobin 11.4 g/dL (11.7-17.4) L 02/23/17 09:10 ABG Carboxyhemoglobin 1.5 % (0.5-1.5) 02/23/17 09:10 POC ABG HHb (Measured) 0.4 % (0-5) 02/23/17 09:10 ABG Methemoglobin 0.8 % (0.0-3.0) 02/23/17 09:10 ABG O2 Capacity 16.0 mL/dl (16-24) 02/23/17 09:10 Hgb O2 Saturation 97.3 % (95.0-98.0) 02/23/17 09:10 FiO2 36.0 % 02/23/17 09:10 Sodium 140 mmol/L (132-148) 03/01/17 06:30 Potassium 4.0 mmol/L (3.6-5.0) 03/01/17 06:30 Chloride 97 mmol/L (98-107) L 03/01/17 06:30 Carbon Dioxide 38 mmol/L (21-33) H 03/01/17 06:30 Anion Gap 9 (10-20) L 03/01/17 06:30 BUN 11 mg/dL (7-21) 03/01/17 06:30 Creatinine 0.5 mg/dL (0.5-1.4) 03/01/17 06:30 Est GFR ( Amer) > 60 03/01/17 06:30 Est GFR (Non-Af Amer) > 60 03/01/17 06:30 Random Glucose 126 mg/dL (70-110) H 03/01/17 06:30 Calcium 9.1 mg/dL (8.4-10.5) 03/01/17 06:30 Phosphorus 4.5 mg/dL (2.5-4.5) 02/22/17 08:00 Magnesium 2.6 mg/dL (1.7-2.2) H 02/25/17 07:57 Total Bilirubin 0.5 mg/dL (0.2-1.3) 03/01/17 06:30 AST 26 U/L (15-59) 03/01/17 06:30 ALT 32 U/L (7-56) 03/01/17 06:30 Alkaline Phosphatase 48 U/L (38-133) 03/01/17 06:30 Lactate Dehydrogenase 284 U/L (333-699) L 02/21/17 23:55 Total Creatine Kinase < 20 U/L (35-230) L 02/21/17 23:55 Troponin I < 0.01 ng/mL 02/21/17 23:55 NT-Pro-B Natriuret Pep 240 pg/mL (0-450) 02/21/17 23:55 Total Protein 6.3 g/dL (5.8-8.3) 03/01/17 06:30 Albumin 3.3 g/dL (3.0-4.8) 03/01/17 06:30 Globulin 2.9 gm/dL 03/01/17 06:30 Albumin/Globulin Ratio 1.1 (1.1-1.8) 03/01/17 06:30 Urine Color Yellow (YELLOW) 02/22/17 13:15 Urine Appearance Clear (CLEAR) 02/22/17 13:15 Urine pH 8.0 (4.7-8.0) 02/22/17 13:15 Ur Specific Houstonia 1.010 (1.005-1.035) 02/22/17 13:15 Urine Protein Negative mg/dL (<30 mg/dL) 02/22/17 13:15 Urine Glucose (UA) Negative mg/dL (NEGATIVE) 02/22/17 13:15 Urine Ketones Negative mg/dL (NEGATIVE) 02/22/17 13:15 Urine Blood Negative (NEGATIVE) 02/22/17 13:15 Urine Nitrate Negative (NEGATIVE) 02/22/17 13:15 Urine Bilirubin Negative (NEGATIVE) 02/22/17 13:15 Urine Urobilinogen 0.2 E.U./dL (<1 E.U./dL) 02/22/17 13:15 Ur Leukocyte Esterase Negative Fawad/uL (NEGATIVE) 02/22/17 13:15 Valproic Acid 53 ug/mL (50.0-100.0) 02/25/17 10:47 Attending/Attestation - Attestation I have personally seen and examined this patient.: Yes I have fully participated in the care of the patient.: Yes I have reviewed all pertinent clinical information, including history, physical exam and plan: Yes Notes (Text): 03/01/17 66 year old male with past medical history of COPD, anxiety, depression, PTSD who presented with panic attack and shortness of breath. She was started on ativan for his anxiety and steroids, duonebs, pulmicort and doxycycline for COPD. His symptoms improved. He has been doing well for the past 2 days. He was noted to have leukocytosis today of 19. However he denies cough, diarrhea or dysuria. CXR shows no acute infiltrates and he is afebrile. Leukocytosis is likely secondary to steroids which is discontinued. CXR shows compression fractures, one new not seen on prior imaging. He denied any back pain. Recommended PT/OT and calcium supplementation. Recommended outpatient DEXA scan. He is discharged to [facility]. Deon Avalos MD Hospitalist.
[2017-03-01 16:41] VITALS: BP 142/96; PULSE 89; RESP 22; TEMP 97.9; O2SAT 96
--- NOTE | 2017-03-02 13:39 | PQF GENQUE ---
This form is a permanent part of the medical record DR. GREWAL, According to discharge summary under additional instructions "continue PT for new compression fracture of thoracic spine" Please verify it this was traumatic , nontraumatic or pathological fracture. Also if it was present on admission? If traumatic please explain how it happen for coding accuracy. Clarification of your documentation is requested to better reflect the severity of illness and intensity of treatment of your patient. Indicators present [] Specify: [] [] Specify: [] [] Specify: [] [] Specify: [] Location in the medical record that reflects the above clinical findings: [] discharge summary; CXR Treatment Provided: [] PHYSICIAN'S RESPONSE Based on your medical judgment of the clinical indicators outlined above please clarify the following: [] Practitioner response [] If unable to determine, please check the box, sign and date. Please review cxr and final dc summary. Severe compression deformities; one is new and not seen on previous studies (on admission). likely nontraumatic given negative history of falls or trauma. Present On Admission (POA) Indicator: [] Present at the time of admission [] Not present at the time of admission [] Clinically Undetermined In responding to this query, please exercise your independent professional judgment. The fact that a question is asked does not imply that any particular answer is desired or expected. Thank you for your clarification on this documentation. If you have any questions please call:[ ] * Thank you, [x ] ARIAN ANDINOdirector day care center [facility]
== END 2017-03-01 18:47 | DRG 191 ==
LOC: ED 21:44 → ERH 02-22 00:47 → 2RSO 02-22 03:36 → 5RNO 02-22 14:11
PROVIDERS: ADMIT Internal Medicine; ATTEND Internal Medicine
PROC: 3E0F7GC Introduction of Other Therapeutic Substance into Respiratory Tract, Via Natural or Artificial Opening (ICD-10-PCS; principal; 2017-02-22)
DX: J44.1 Chronic obstructive pulmonary disease with (acute) exacerbation (principal); N39.0 Urinary tract infection, site not specified; I11.0 Hypertensive heart disease with heart failure; I50.9 Heart failure, unspecified; M48.54XA Collapsed vertebra, not elsewhere classified, thoracic region, initial encounter for fracture; F31.9 Bipolar disorder, unspecified; F17.210 Nicotine dependence, cigarettes, uncomplicated; I25.10 Atherosclerotic heart disease of native coronary artery without angina pectoris; N40.0 Benign prostatic hyperplasia without lower urinary tract symptoms; F06.4 Anxiety disorder due to known physiological condition; F06.30 Mood disorder due to known physiological condition, unspecified; F41.0 Panic disorder [episodic paroxysmal anxiety]; F10.10 Alcohol abuse, uncomplicated; K59.00 Constipation, unspecified; F60.2 Antisocial personality disorder; M79.642 Pain in left hand; F43.10 Post-traumatic stress disorder, unspecified; Z95.5 Presence of coronary angioplasty implant and graft; Z78.1 Physical restraint status